=== PATIENT | female | born 1970 | race Caucasian/White ===

== ENCOUNTER 2020-06-24 07:43 | Emergency (ER) | payer OTHER, SELFPAY ==
[2020-06-24 07:45] VITALS: BP 130/105; PULSE 102; RESP 18; TEMP 36.6; O2SAT 97; BMI 22.6
--- NOTE | 2020-06-24 08:15 | CT_ITS ---
STUDY: CT BRAIN WITHOUT CONTRAST REASON FOR EXAM: Female, 49 years old. Head injury, syncope RADIATION DOSAGE (If Supplied By Facility): CTDIvol = ( 44.99 ) mGy, DLP = ( 745.49 ) mGycm TECHNIQUE: Transaxial CT imaging of the brain was performed without administration of intravenous contrast material. Individualized dose optimization techniques were used for this CT. COMPARISON: No relevant priors. FINDINGS: Normal soft tissue structures. Normal calvarium. Normal size ventricles and extra-axial spaces for the patient''s age. Normal white matter tracts of the cerebral hemispheres. Normal basal ganglia and thalami. Normal brainstem. Normal cerebellum. There is no intracranial hemorrhage. There are no findings of an acute ischemic infarction. Normal visualized paranasal sinuses. CT/Brain/Head without Contrast IMPRESSION: Normal unenhanced CT scan of the brain. Electronically Signed: Romaine Bojorquez MD at 8:41 EST Tel , Service support ,
--- NOTE | 2020-06-24 08:17 | ED.DCSUM_ITS ---
History of Present Illness Chief Complaint: Syncope Informant: Patient Onset: Yesterday Timing: Intermittent Narrative: Patient is a 49-year-old female that denies any significant past medical history but notes an episode of vertigo 1 year ago and a recent Covid infection presenting with dizziness. Patient states 2 days ago she stubbed her toe and thinks she dislocated her left pinky toe. She pulled it back into place immediately afterwards had significant pain and became dizzy. That evening she went to take a meclizine which she had been prescribed a year ago for vertigo but actually took her son's old Vicodin instead. When she woke up she went to get out of bed and felt dizzy and then passed out. Patient thinks she hit her head on the door and then fell back and hit her back on the edge of the shower. While she was on the ground patient dry heaves, which shaky and had cold sweats. This symptoms subsided however throughout the day yesterday and today when she moves her head or goes to get up she has a spinning sensation. She had no further episode of nausea or vomiting. She no she is also had some pain and the back of her head at the base of her skull and in her neck/back. Patient has taken no further medications for her symptoms. He has no other complaints at this time. She denies any associated chest pain, shortness of breath or difficulty breathing. Denies any swelling of her legs or edema. No GI or s ymptoms. 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 Denies: Chills, Fever, Sweats Eyes: Denies: Visual changes - bilaterally, Diplopia ENT: Reports: - - Nasal congestion. Denies: Rhinorrhea, Sore throat Cardiovascular: Denies: Chest pain, Palpitations Respiratory: Denies: Dyspnea, Cough, Dyspnea on exertion Gastrointestinal: Denies: Abdominal pain, Nausea, Vomiting, Diarrhea, Melena, Hematochezia Genitourinary: Denies: Dysuria, Hematuria, Frequency Musculoskeletal: Reports: Back pain. Denies: Extremity Pain Skin: Denies: Rash, Wounds Neurological: Reports: Headache. Denies: Weakness, Numbness Physical Exam Vital Signs/Narrative: Vital Signs Temp Pulse Resp BP Pulse Ox 06/24/20 07:45 98 F 102 H 18 130/105 H 97 Inital Vital Signs reviewed: Yes General: Well nourished, Well developed, No Acute Distress Head: Normocephalic, Atraumatic. Negative for: Tenderness Eyes: Perrl, EOMI, - - Horizontal fatiguing nystagmus with left Rupa maneuver ENT: Moist mucous membranes, No rhinorrhea, TM's clear. Negative for: Nasal congestion, Sinus tenderness Neck: Supple, - - Mild tenderness palpation bilateral paraspinal muscles, right worse than left, trapezius and at the base of the skull, still with muscle spasm Cardiovascular: Regular rate, Regular rhythm, No murmurs Respiratory: No distress, CTA bilaterally, Chest nontender Abdomen: Soft, Nontender, Nondistended, Normal bowel sounds Back: Nontender, Normal Inspection Extremities: No edema, Tenderness - And ecchymosis to the left pinky toe at the base, no obvious deformity Skin: Normal color, No rash, Trauma - Facial abrasion to the bridge of the nose and right forehead Neurological: Alert, Oriented x3, Cranial nerves II-XII grossly intact, Normal Strength, Normal Sensation, Normal Gait, - - Normal coordination Psychological: Normal affect, Normal Mood Diagnostic/Tx/Re-eval Clinical Impression(s) from Imaging Studies Brain CT 06/24/20 08:15 IMPRESSION: Normal unenhanced CT scan of the brain. Electronically Signed: Romaine Bojorquez MD at 8:41 EST Tel , Service support , Foot X-Ray 06/24/20 08:34 IMPRESSION: Acute nondisplaced oblique fracture of the neck and head of the fifth proximal phalanx. Electronically Signed: Drew Varner MD at 8:53 EST Tel , Service support , - Medical Decision Making Patient evaluated for persistent dizziness after a fall. Patient broke her left toe and reduced it herself. X-rays obtained shows an acute nondisplaced oblique fracture of the neck and head of the fifth proximal phalange. Patient has a normal neurologic exam. She does have abrasions to her head and because of her fall I did obtain a head CT. This is negative. Her physical exam is actually consistent with peripheral vertigo. Patient has reproducible symptoms on the left with Moose Hallpike test. Patient is given meclizine with improvement of her symptoms. As she does tolerate the rupa maneuver. Patient syncopal episode seems to be vasovagal mediated and related to taking a Vicodin. Spent over 24 hours and she not had any further syncopal episodes. I do not think blood work is indicated. Patient is counseled that should she develop any worsening symptoms she will need to return to the ER for further evaluation . Agreeable with this. Patient does have some abrasions but elects to follow-up with her PCP for update of her tetanus. She will follow-up with her PCP as needed for her vertigo. She has meclizine at home which she can take. Patient is counseled on signs and symptoms requiring return to the emergency room. Patient verbalizes agreement and understand this plan. Patient discharged home in stable and improved condition. ED Disposition - Plan for ED Patient: Disposition: Home or Assisted Living Diagnosis: Vertigo, Fracture of fifth toe, left, closed Instructions: ED Near-Fainting- Vagal Reaction, ED Fracture, Toe, Closed, ED Vertigo, Unspecified Referrals: Celsa Couch [employer]ERCIAL TRUCK DRIVER, [employer]CIAL TRUCK [employer]IVER[employer] [Primary Care Provider] - Additional Instructions: Alternate Tylenol and ibuprofen as needed. Follow-up with your primary care provider within the next week. Perform the Rupa maneuver for your vertigo at home. Return to the emergency room with any worsening symptoms.
[2020-06-24] MEDS: Meclizine HCl 25 MG Tablet PO (08:26)
--- NOTE | 2020-06-24 08:34 | RAD_ITS ---
STUDY: X-RAY - LEFT FOOT CLINICAL: Female, 49 years old. pain, injury TECHNIQUE: 3 view(s) of the foot. COMPARISON: None. FINDINGS: Normal talus, calcaneus, and tarsal bones. Normal visualized subtalar, talonavicular, calcaneocuboid, tarsal and tarsometatarsal articulations. Normal metatarsi. Normal metatarsophalangeal joint of the great toe. Normal tibial and fibular sesamoid bones. Normal interphalangeal joint of the great toe. Normal phalanges of the great toe. Normal second through fifth metatarsophalangeal joints. The acute nondisplaced oblique fracture of the neck and head of the fifth proximal phalanx. The soft tissue structures are unremarkable. RAD/Foot min 3 Views IMPRESSION: Acute nondisplaced oblique fracture of the neck and head of the fifth proximal phalanx. Electronically Signed: Drew Varner MD at 8:53 EST Tel , Service support ,
[2020-06-24 10:24] VITALS: BP 124/78; PULSE 71; RESP 16; O2SAT 99
== END 2020-06-24 10:25 | disposition home or self-care (01) ==
PROVIDERS: Emergency Provider Emergency Medicine; PCP Nurse Practitioner Family
DX: H81.399 Other peripheral vertigo, unspecified ear (principal); S92.515A Nondisplaced fracture of proximal phalanx of left lesser toe(s), initial encounter for closed fracture; S00.31XA Abrasion of nose, initial encounter; S00.81XA Abrasion of other part of head, initial encounter; W22.8XXA Striking against or struck by other objects, initial encounter; W18.00XA Striking against unspecified object with subsequent fall, initial encounter; Y93.9 Activity, unspecified; Y92.9 Unspecified place or not applicable; Y99.9 Unspecified external cause status; Z86.16 Personal history of COVID-19
CPT/HCPCS: 70450; 73630; 99282

== ENCOUNTER 2021-10-29 09:00 | Outpatient (RCR) | payer OTHER, SELFPAY ==
--- NOTE | 2021-09-16 16:59 | HP.PTEVAL_ITS ---
Patient's Visit Information DIOGENES CRAIN is a 50 year old F referred to Physical Therapy by LONI Pandya with a diagnosis of R ARM PAIN. Date of Evaluation: 09/16/21 Physical Therapist: Paola Dawn PT, Cert MDT - Visit Plan Frequency: 2-3x /Week Duration: 4-6 Weeks Plan: US X 6. POSTURE CORRECTION/STRENGTHENING, INSTRUCTION IN APPROPRIATE BODY MECHANICS AND ACTIVITY MODIFICATIONS. GROVER UE ROM, STRETCHING AND STRENGTHENING. HEP INSTRUCTION. 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 MOSTLY DESK WORK BUT 25% GETTING UP. Present symptoms: RIGHT UPPER ARM PAIN. R UE TINGLING ABOUT EVERY MORNING. TINGLING IS GONE IN ABOUT 30 MIN OR LESS. Present since: LAST WEEK IN APR 2021. Pain Scale: Worst - 1/10 Least - 0/10. Currently: 05/06. Commenced as a result of: FELL ON THE ICE HIKING. FELL ON RIGHT SIDE. Symptoms at onset: SAME. Worse: THINKING ABOUT IT. REACHING ACROSS BODY. PULLING BLANKET UP. R SDLY. Better: TIME. Disturbed sleep: NO. Previous history/Previous treatment: NO HX OF RIGHT UE PROBLEMS. RIGHT FOOT FX AND FALL MAY 2020 AND HIT HEAD AND SOME NECK ISSUES. NECK ISSUES RESOLVED LAST SUMMER. NO NECK TREAMENT NEEDED OTHER THAN REST. CHIRO EVERY FEW MONTHS AND DID HAVE NECK ADJUSTMENTS. This episode: NECK ADJUSTMENTS. MASSAGE THERAPY. Dizziness: NO. Tinnitis: CHRONIC X 1.5 YEARS SINCE FALL - MILD. Nausea: NO. Shortness of Breath: NO. Difficulty Swollowing: NO. Gait: NORMAL. Accidents: FALLS. Unexplained weight loss: NO. Imaging: NONE. PMH/Recent major surgery: UNREMARKABLE. - Objective Sitting Posture/Standing Posture: GOOD. Other Observations: INDEP GAIT AND TRANSFERS. Sensory deficit: GROVER UE LIGHT TOUCH SENSATION IS GROSSLY INTACT AND SYMMETRICAL. ROM deficit: GROVER UE'S WFL. Motor deficit: GROVER UE'S 5/5. Dural Signs: NEGATIVE GROVER UE'S. Cervical Mvmt Loss: Flex: MIN. Pro: NIL. Ext: MIN. Ret: MIN. RSB: MIN. LSB: MIN. R Rot: NIL. L Rot: NIL. CERVICAL ROM TESTING HAS NE ON RIGHT UE SX'S. Postural strength: FAIR. Palpation: VERY MILD TENDERNESS OF RIGHT LATERAL UPPER ARM IN DISTAL DELTOID AND TRICEP AREA. OTHER: 1/10 PAIN RIGHT LATERAL ARM AT END RANGE R SHLD HORIZONTAL ABD. - Balance/Special Test Scores Quick DASH Score: [phone] - Goals Goal 1:: DECREASE C/O R ARM PAIN Goal Time Frame: 4-6 Weeks Goal 2:: INDEP HEP Goal Time Frame: 4-6 Weeks Goal Time Frame: 4-6 Weeks - Anticipated Interventions Patient/Client Instruction: Educate patient on: Condition, Plan of Care, Risk Factors For the Purpose of:: To improve self management Therapeutic Exercise to Include: Strength training, Body mechanics, Postural training, Neuromotor development, Scapular Strength/Stabilization For the Purpose of:: To decrease pain, To improve muscle performance and motor function, To increase tolerance to activity/condition/position, To improve ability of physical actions for home/community/work/leisure Cryotherapy (ice pack, ice massage): Yes Thermo therapy (hot pack): Yes Ultrasound (thermal/non thermal): Yes For the Purpose of:: To decrease pain, To improve nutrient delivery to tissue Thank you for the opportunity to evaluate your patient. For Medicare and Medicare HMO plans, please review the plan of care and approve it. It will need to be FAXED BACK to us at [phone] for Medicare purposes. For Medicare only, by signing this I certify the plan of care. Please let me know if there are questions or concerns regarding this plan of care. Physician Signature: Date:
--- NOTE | 2021-10-29 10:26 | HP.PTDCSUM ---
It has been my pleasure to treat DIOGENES CRAIN referred by LONI Pandya, with the diagnosis of R ARM PAIN for a total of 9 visit(s). Discharge Date: 10/29/21 Please see the following information for a summary of their discharge status. Subjective: Pt. reports minimal change with DN last visit. She is able to complete most of her activities including hiking and Pilates activities. She does have some pain with end range flexion, H add and abduction. She reports being 80% better overall. R SHLD Pain Intensity (Out of 10): 0 % Improvement: 80 Objective/Function: ROM: R shoulder: full motion with increased pain at end range flexion, abd and H add. She has increased pain with over pressure in these areas as well. MMT: 5/5 throughout without increase in symptoms. Pt. is overall doing well. I reviewed her HEP to include SL shoulder ER (high volume low load as tolerated), I/T/Ys deltoid strengthening and stability exercises a tolerated. I do want her working on shoulder pass throughs as well. Goal 1:: DECREASE C/O R ARM PAIN Goal Progress: Progressing Goal 2:: INDEP HEP Goal Progress: Goal Met Plan: Pt. to be DC to HEP at this point in time. Discharge Comments: Pt. was treated with RTC stability exercises for her R shoulder pain. She is doing better, but is still having lateral distal deltoid pain with end ranges of motion. No issues with MMT. She is to continue with her HEP for a month or so and if she continues to progress, she will continue, but if worsening she is to follow up with physician. If there are questions or concerns regarding this patient's physical therapy, please feel free to call me at [phone]. Thank you for the referral of this patient. Sincerely, Shankar Bueno, DPT Balance/Gait/Functional tests - Balance/Special Test Scores Quick DASH Score: [phone]
== END 2021-10-29 19:00 | disposition home or self-care (01) ==
LOC: PT 09:00
PROVIDERS: PCP Nurse Practitioner Family; Referring Provider Nurse Practitioner Family; Visit Provider Nurse Practitioner Family
DX: M79.601 Pain in right arm (principal)
CPT/HCPCS: 97035; 97110; 97140; 97161; 97164; 97530

== ENCOUNTER → 2024-10-14 | Outpatient (CLI) | payer OTHER, SELFPAY ==
--- NOTE | 2024-10-14 11:37 | MRI_ITS ---
PROCEDURE: SPINE LUMBAR (ROUTINE) 10/14/2024 REASON FOR EXAM: BACK PAIN TECHNIQUE: SPINE LUMBAR (ROUTINE) COMPARISON: none FINDINGS: Straightened lumbar lordosis denoting myospasm. The examined vertebral bodies and posterior neural arches show no fracture or dislocation with preserved vertebral bodies height. No vertebral fractures or dislocation. No obvious marrow degenerative changes. Modic 0. The scanned lumbosacral intervertebral discs show normal MRI appearance, signal characteristics, and heights. T12-L1: There is no focal disc pathology, central canal stenosis or neural foraminal stenosis. L1-L2: There is no focal disc pathology, central canal stenosis or neural foraminal stenosis. L2-L3: There is no focal disc pathology, central canal stenosis or neural foraminal stenosis. L3-L4: There is no focal disc pathology, central canal stenosis or neural foraminal stenosis. L4-L5: There is no focal disc pathology, central canal stenosis or neural foraminal stenosis. L5-S1: There is no focal disc pathology, central canal stenosis or neural foraminal stenosis. The conus is seen terminating opposite T12-L1 level. No tethered cord or diastematomyelia. The lower dorsal spinal cord, conus medullaris, and cauda equina nerve roots show normal MRI signal. L5 small osseous hemangioma. No marrow infiltrative lesions. Paravertebral soft tissue is unremarkable. No developmental canal stenosis. MRI/Spine Lumbar (Routine) IMPRESSION: Straightened lumbar lordosis denoting myospasm. No vertebral fractures or dislocation. No focal disc pathology, central canal stenosis or neural foraminal stenosis. Reading Location: [facility]
--- OUTSIDE RECORDS SUMMARY | 2024-10-14 11:55 | XMS RPT_ITS | CCD ---
Author Organization [facility] Care Team Providers Care Trim Attacher Name Role Phone Dossi Kalyani LAZAR Unavailable Maddy AMERICAN HISTORY TEACHER, AMERICAN HISTORY TEACHER-C Celsa Primary Care Provider Maddy AMERICAN HISTORY TEACHER, AMERICAN HISTORY TEACHER-C Celsa Referring Provider [phone] Dr. Kalyani Dinh Attending Provider [phone] SCREEN MAKER-CELSA SMITH Primary Care Physician Lily Segura DO Primary Care Provider Codie Pérez MD Primary Care Provider Podlogar SCREEN MAKER.Mary SMITH Unavailable Podlogar SCREEN MAKER.MANAGER UTILITY, Mary Unavailable Dossi Dr. Kalyani LAZAR Attending Provider [phone] PODLOGAR, MARY Referring Unavailable CODIE PÉREZ Primary Care Unavailab le PODLOGAR, MARY Attending Unavailable CODIE PÉREZ Primary Care Unavailab le Andrey Pérez Primary Care Unavailable Andrey Pérez Referring Unavailable Dossi, Kalyani Attending Unavailable Dossi, Kalyani Attending Unavailable Dossi, Kalyani Attending Unavailable Dossi, Klayani Attending Unavailable Dossi, Kalyani Attending Unavailable Dossi, Kalyani Attending Unavailable Dossi, Kalyani Attending Unavailable Andrey Pérez Primary Care Unavailable Dossi, Kalyani Attending Unavailable Dossi, Kalyani Attending Unavailable Andrey Pérez Primary Care Unavailable Dossi, Kalyani Referring Unavailable Dossi, aKlyani Attending Unavailable Dossi, Kalyani Attending Unavailable Dossi, Kalyani Attending Unavailable Beto BURNETT, Dr. Balderas Primary Care Provider Dr. Andrey Pérez MD Referring Provider Allergies Allergy Classification Reported Allergen(s) Allergy Type Date of Onset Reaction(s) Facility (1 source) Ragweed 1 Allergy to substance Itchy [facility] [place] Comment on above: itcy eyes (3 sources) Seasonal allergy; Translations: [SEASONAL ALLERGIES] Allergy to substance Other: See Comments [facility] Medications Current Medications Medication Drug Class(es) Dates Sig (Normalized) Sig (Original) Hydrocortisone 2.5%/Lidocaine 5% Suppository (Cmpd) suppository (3 sources) Start: 03-03-2023 Hydrocortisone 2.5%/Lidocaine 5% Suppository (Cmpd) suppository Active 0 .Route March 03, 2023 1:00am As directed Magnesium glycinate (2 sources) MAGNESIUM GLYCIN ATE ORAL Take by mouth. Active meclizine hydrochloride 25 mg oral tablet (1 source) Antiemetic Start: 06-28-2020 meclizine 25 mg oral tablet Dose : 25 mg = 1 tab(s), Oral, BID, # 60 tab(s), 0 Refill(s) Start Date: 06/28/20 Status: Ordered MULTIVITAMIN ORAL (4 sources) take 1 tablet by mouth twice daily MULTIVITAMIN ORAL Take 1 tablet by mouth twice daily. Active take 1 tablet by mouth twice clemente ly MULTIVITAMIN ORAL Take 1 tablet by mouth twice daily. 0 Active Comment on above: Take 1 tablet by leif th twice daily. Multivitamin tablet (3 sources) Start: 03-03-2023 Multivitamin tablet Active 1 {tbl} PO DAILY March 03, 2023 1:00am Completed/Discontinued Medications Medication Drug Class(es) Dates Sig (Normalized) Sig (Original) polyethylene glycol 3350 444812 mg / potassium chloride 2970 mg / sodium bicarbonate 6740 mg / sodium chloride 5860 mg / sodium sulfate 33766 mg powder for oral solution (1 source) Osmotic Laxative Start: 06-24-2022 End: 06-24-2022 peg 3350-Electrolytes (GOLYTELY) 236-22.74-6.74 -5.86 gram suspension Take 4,000 mL by mouth one time only for 1 dose. 1 Each 0 06/24/2022 06/24/2022 Comment on above: Take 4,000 mL by leif th one time only for 1 dose. Problems Active Problems Problem Classification Problem Date Documented Da te Episodic/Chronic Conditions associated with dizziness or vertigo (4 sources) Vertigo; Translations: [Dizziness and giddiness] 06-25-2020 Episodic Fracture of lower limb (5 sources) Closed fracture of phalanx of foot; Translations: [Displaced unspecified fracture of left lesser toe(s), initial encounter for closed fracture] 06-28-2020 Episodic Hemorrhoids (3 sources) Hemorrhoids; Translations: [Unspecified hemorrhoids] 03-06-2023 Episodic Other bone disease and musculoskeletal deformities (20 sources) Segmental and somatic dysfunction; Translations: [Segmental and somatic dysfunction of cervical region] Onset: 04-10-2016 04-10-2016 Episodic Other bone disease and musculoskeletal deformities (2 sources) Segmental and somatic dysfunction of cervical region; Translations: [Nonallopathic lesions, cervical region] Onset: 09-28-2024 Episodic Other bone disease and musculoskeletal deformities (2 sources) Segmental and somatic dysfunction of lumbar region; Translations: [Nonallopathic lesions, lumbar region] Onset: 09-29-2024 Episodic Other bone disease and musculoskeletal deformities (2 sources) Segmental and somatic dysfunction of thoracic region; Translations: [Nonallopathic lesions, thoracic region] Onset: 09-28-2024 Episodic Other bone disease and musculoskeletal deformities (1 source) Segmental and somatic dysfunction of pelvic region; Translations: [Segmental and somatic dysfunction of pelvic region] Onset: 09-28-2024 Episodic Other connective tissue disease (1 source) Pain in right arm 09-03-2021 Episodic Other gastrointestinal disorders (1 source) Central abdominal mass 09-12-2019 Episodic Other gastrointestinal disorders (1 source) Heartburn 09-12-2019 Episodic Other gastrointestinal disorders (1 source) History of hemorrhoid; Translations: [Personal history of other diseases of the digestive system] Episodic Other injuries and conditions due to external causes (1 source) Concussion injury of body structure 06-28-2020 Episodic Other screening for suspected conditions (not mental disorders or infectious disease) (7 sources) Patient encounter status; Translations: [Encounter for screening for malignant neoplasm of colon] Onset: 09-09-2024 Episodic Otitis media and related conditions (1 source) Dysfunction of eustachian tube 09-12-2019 Episodic Spondylosis; intervertebral disc disorders; other back problems (8 sources) Backache; Translations: [Dorsalgia, unspecified] Episodic Sprains and strains (4 sources) Acute cervical sprain; Translations: [Sprain of joints and ligaments of unspecified parts of neck, initial encounter] 07-02-2020 Episodic Superficial injury; contusion (6 sources) Contusion of right thumb; Translations: [Contusion of right thumb without damage to nail, initial encounter] 07-06-2023 Episodic Syncope (1 source) Syncope 06-28-2020 Episodic Unclassified (2 sources) Low back pain, unspecified; Translations: [Low back pain, unspecified] Onset: 09-29-2024 Past or Other Problems Problem Classification Problem Date Documented Da te Episodic/Chronic Unclassified (1 source) Patient encounter status 09-09-2024 Results Test Name Value Interpretation Reference Range Facility Chiropractic Reporton 2024 Chiropractic Report [facility] [address] [place] [address] OFFICE VISIT Date of Service: 09/28/24 MR#: [id number] Acct: [id number] Name: DIOGENES RUSSELL Rep #: [id number] : 1970 Provider: NAGI Henderson Age/Sex: 53/F Location: [facility] Status: Signed Intake Vital Signs 08/22/24 15:35 Height 5 ft Intake Visit Reasons: Back Pain Chief Complaint: low back pain/neck Is patient in pain?: Yes (low back ) Pain scale (1-10): 5 Allergies No Known Allergies Allergy (Verified 09/28/24 08:48) Medications ???Medication ???Instructions ???Recorded ???Confirmed ???Type Hydrocortisone 2.5%/lidocaine 5% #30 ea 03/03/23 09/28/24 Rx suppository (cmpd) multivitamin 1 tab PO DAILY 03/03/23 09/28/24 H istory [facility] Medical History Contusion of right thumb Subungual hematoma of right thumb Hemorrhoids Surgical History H/O prior ablation treatment Social History Smoking Status: Never smoker alcohol intake: current alcohol intake frequency: a few times a month substance use type: does not use HPI Back Pain Chief Complaint: low back pain Visit Number: 4 Details: DIOGENES RUSSELL is a 53 year old F here today to f/u on low back pain. Pt. reports she initially had some improvement in her low back pain after her last adjustment and acupuncture session. She states she has been doing restorative PT exercises she was given as well stretching. She continues to c/o low back pain and stiffness that is worse on the right side. She still notices twinges of pain in her bilateral low back. She rates her pain 5/10 and describes it as a constant achiness. She also treats pain at home with ice and Aleve as needed. She denies new injury, numbness, tingling or radiculopathy at this time. She continues to get massages in between adjustments which help alleviate discomfort. She reports chiropractic adjustments are effective in relieving her back pain/discomfort temporarily but it gradually returns. Onset: 01/20/24 Location: Back Duration: intermittent Aggravating or associated factors: Bending, hiking,ADLs Relieving factors: Chiro,acu Pain Quality: aching and dull Exam Musc General: Yes normal posture, normal gait, joint tenderness and decreased range of motion Cervical Spine: Yes loss of normal cervical lordosis Thoracic/Lumber: Yes thoracic and lumbar spine normal to inspection, Yes paraspinal tenderness on the right greater than left (lumbar), Yes thoraco-lumbar spasm bilaterally (paraspinal L3-L5, glute max) in the lower lumbar, Yes Trigger (R glute medius) and Yes misalignment L3, L4, L5 and RIL Sacroiliac joints: on the right tender to palpation Office Procedures Procedures - Chiropractic Procedures Manipulation: Lumbar L4 and Pelvis RIL Manipulation: 1-2 regions Acupuncture: Acupuncture with electrical stimulation (ES) (initial session) Patient Response: positive Details: ???Acupuncture Patient instructions/Risk: Patient instructed not to move and informed of risks of moving. Risks associated with the procedure and the specific location were reviewed with the patient and consent was obtained. Acupuncture performed: E-stim was utilized. Acupoints Treated: BL:23,24,25,26,40,60, Yaoyan,surround dragon at R SI Sterile, single use, solid filament needles were inserted at various depths and angles to release tight tissue, improve microcirculation and remove neuro-noxious chemicals via a myofascial twitch response. [place] were inserted, needle manipulation was performed. Needle removal was performed and pressure was applied when necessary. Minutes:15 Needle Number: .20x30 Patient response: positive Patient Positioning: prone Assessment and Plan Assessment and Plan (1) Segmental and somatic dysfunction of pelvic region: Status: Acute (2) Segmental and somatic dysfunction of lumbar region: Status: Acute (3) Back pain: Status: Chronic Qualifiers: Back pain location: low back pain Chronicity: acute Back pain laterality: bilateral Sciatica presence: without sciatica Qualified Code(s): M54.50 - Low back pain, unspecified Orders: Orders Chiropractic Treatments Today M99.01 - Segmental and somatic dysfunction of cervical region, M99.02 - Segmental and somatic dysfunction of thoracic region, M99.03 - Segmental and somatic dysfunction of lumbar region, M99.05 - Segmental and somatic dysfunction of pelvic region Plan Patient was treated without incident. She is showing slow improvement. She has a lumbar MRI scheduled for 10/24/2024. Continue care. Plan Details Goals Barriers: Goals Decrease pain Decrease spasm Improve ROM Decrease (more content not included)... Normal [facility] Chiropractic Reporton 2024 Chiropractic Report [facility] [address] [place] [address] OFFICE VISIT Date of Service: 09/13/24 MR#: [id number] Acct: [id number] Name: DIOGENES RUSSELL Walter Rep #: [id number] : 1970 Provider: NAGI Henderson Age/Sex: 53/F Location[place] [facility] [place] Status: Signed Intake Vital Signs 08/22/24 15:35 Height 5 ft Intake Visit Reasons: Back Pain Chief Complaint: low back pain/neck Is patient in pain?: Yes (low back ) Pain scale (1-10): 4 Allergies No Known Allergies Allergy (Verified 09/13/24 15:53) Medications ???Medication ???Instructions ???Recorded ???Confirmed ???Type Hydrocortisone 2.5%/lidocaine 5% #30 ea 03/03/23 09/13/24 Rx suppository (cmpd) multivitamin 1 tab PO DAILY 03/03/23 09/13/24 H istory [facility] Medical History Contusion of right thumb Subungual hematoma of right thumb Hemorrhoids Surgical History H/O prior ablation treatment Social History Smoking Status: Never smoker alcohol intake: current alcohol intake frequency: a few times a month substance use type: does not use HPI Back Pain Chief Complaint: low back pain Visit Number: 3 Details: DIOGENES RUSSELL is a 53 year old F here today to f/u on low back pain. Pt. reports she is really not having any improvement in her low back pain. She states she has been doing the PT exercises she was given as well as pilates and stretching. her adjustment last week she had dry needling. She continues to c/o low back pain and stiffness that is equal bilaterally, this has improved since her last adjustment. She has been able to return to doing strength training every night for 30 minutes but still notices twinges of pain in her bilateral low back. She rates her pain 4/10 and describes it as a constant achiness. She also treats pain at home with ice and Ibuprofen as needed. She denies new injury, numbness, tingling or radiculopathy at this time. She continues to get massages in between adjustments which help alleviate discomfort. She reports chiropractic adjustments are effective in relieving her back pain/discomfort temporarily but it gradually returns. Onset: 01/20/24 Location: Back Duration: intermittent Aggravating or associated factors: Bending, hiking,ADLs Relieving factors: Chiro,massage Pain Quality: aching and dull Exam Musc General: Yes normal posture, normal gait, joint tenderness and decreased range of motion Cervical Spine: Yes loss of normal cervical lordosis Thoracic/Lumber: Yes thoracic and lumbar spine normal to inspection, Yes paraspinal tenderness on the right greater than left (lumbar) and on the left greater than right (upper thoracic), Yes thoraco-lumbar spasm bilaterally (paraspinal L3-L5, glute max) in the lower lumbar and on the left greater than right (trap, rhomboid), Yes Trigger (R glute medius) and Yes misalignment T1, T2, T3, T5, T6, L3, L4, L5 and RIL Sacroiliac joints: on the right tender to palpation Office Procedures Procedures - Chiropractic Procedures Manipulation: Lumbar L4, Thoracic T5 and Pelvis RIL Manipulation: 3-4 regions Traction, Mechanical: Yes Acupuncture: Acupuncture with electrical stimulation (ES) (initial session) Patient Response: positive Details: ???Acupuncture Patient instructions/Risk: Patient instructed not to move and informed of risks of moving. Risks associated with the procedure and the specific location were reviewed with the patient and consent was obtained. Acupuncture performed: E-stim was utilized. Acupoints Treated: BL60,BL40,GB30,BL23,2 4,25, Yaoyan Patient was prepped with 70% Isopropyl alcohol to the site, if needed. Sterile, single use, solid filament needles were inserted at various depths and angles to release tight tissue, improve microcirculation and remove neuro-noxious chemicals via a myofascial twitch response. [place]on were inserted, needle manipulation was performed. [place] were removed and pressure was applied(if necessary). Minutes:20 Needle Number: .20x30, .25x75 Patient response: positive Patient Positioning: prone Assessment and Plan Assessment and Plan (1) Segmental and somatic dysfunction of thoracic region: Status: Acute (2) Segmental and somatic dysfunction of pelvic region: Status: Acute (3) Segmental and somatic dysfunction of lumbar region: Status: Acute (4) Back pain: Status: Chronic Qualifiers: Back pain location: low back pain Chronicity: acute Back pain laterality: bilateral Sciatica presence: without sciatica Qualified Code(s): M54.50 - Low back pain, unspecified Orders: Orders Chiropractic Treatments Today M99.01 - Segmental and somatic dysfunction of cervical (more content not included)... Normal [facility] CBC W Auto Differential pane l (Bld)on 09-09-2024 Basophils (Bld) [#/Vol] 0.03 10*3/uL Normal <0.11 [facility] Comment on above: Order Comment: Speci men Type: BLOOD SPECIMEN Ordering Facility: [facility] Address: [address] [place] [address] Performed By: #### 5 7021-8 #### [facility] CLIA [id number] [address] [place] [address] [place] Basophils/100 WBC (Bld) 0.8 % Normal [facility] Comment on above: Order Comment: Speci men Type: BLOOD SPECIMEN Ordering Facility: [facility] Address: [address] [place] [address] Performed By: #### 5 7021-8 #### [facility] CLIA [id number] [address] [place] [address] [place] Differential cell count method Nom (Bld) Auto Normal [facility] Comment on above: Order Comment: Speci men Type: BLOOD SPECIMEN Ordering Facility: [facility] Address: [address] [place] [address] Performed By: #### 5 7021-8 #### [facility] CLIA [id number] [address] [place] [address] [place] Eosinophils (Bld) [#/Vol] 0.15 10*3/uL Normal <0.46 [facility] Comment on above: Order Comment: Speci men Type: BLOOD SPECIMEN Ordering Facility: [facility] Address: [address] [place] [address] Performed By: #### 5 7021-8 #### [facility] CLIA [id number] [address] [place] [address] [place] Eosinophils/100 WBC (Bld) 3.8 % Normal [facility] Comment on above: Order Comment: Speci men Type: BLOOD SPECIMEN Ordering Facility: [facility] Address: [address] [place] [address] Performed By: #### 5 7021-8 #### [facility] CLIA [id number] [address] [place] [address] [place] Erythrocyte distribution width (RBC) [Ratio] 12.1 % Normal 11.5-15.0 [facility] Comment on above: Order Comment: Speci men Type: BLOOD SPECIMEN Ordering Facility: [facility] Address: [address] [place] [address] Performed By: #### 5 7021-8 #### [facility] CLIA [id number] [address] [place] [address] [place] Hematocrit (Bld) [Volume fraction] 40.2 % Normal 36.0-46.0 [facility] Comment on above: Order Comment: Speci men Type: BLOOD SPECIMEN Ordering Facility: [facility] Address: [address] [place] [address] Performed By: #### 5 7021-8 #### [facility] CLIA [id number] [address] [place] [address] [place] Hemoglobin (Bld) [Mass/Vol] 13.4 g/dL Normal 11.5-15.5 [facility] Comment on above: Order Comment: Speci men Type: BLOOD SPECIMEN Ordering Facility: [facility] Address: [address] [place] [address] Performed By: #### 5 7021-8 #### [facility] CLIA [id number] [address] [place] [address] [place] Immature granulocytes (Bld) [#/Vol] 10*3/uL Normal <0.10 [facility] Comment on above: Order Comment: Speci men Type: BLOOD SPECIMEN Ordering Facility: [facility] Address: [address] [place] [address] Performed By: #### 5 7021-8 #### [facility] CLIA [id number] [address] [place] [address] [place] Immature granulocytes/100 WBC (Bld) 0.3 % Normal [facility] Comment on above: Order Comment: Speci men Type: BLOOD SPECIMEN Ordering Facility: [facility] Address: [address] [place] [address] Performed By: #### 5 7021-8 #### [facility] CLIA [id number] [address] [place] [address] [place] Lymphocytes (Bld) [#/Vol] 1.73 10*3/uL Normal 1.00-4.00 [facility] Comment on above: Order Comment: Speci men Type: BLOOD SPECIMEN Ordering Facility: [facility] Address: [address] [place] [address] Performed By: #### 5 7021-8 #### [facility] CLIA [id number] [address] [place] [address] [place] Lymphocytes/100 WBC (Bld) 44.0 % Normal [facility] Comment on above: Order Comment: Speci men Type: BLOOD SPECIMEN Ordering Facility: [facility] Address: [address] [place] [address] Performed By: #### 5 7021-8 #### [facility] CLIA [id number] [address] [place] [address] [place] MCH (RBC) [Entitic mass] 32.4 pg Normal 26.0-34.0 [facility] Comment on above: Order Comment: Speci men Type: BLOOD SPECIMEN Ordering Facility: [facility] Address: [address] [place] [address] Performed By: #### 5 7021-8 #### [facility] CLIA [id number] [address] [place] [address] [place] MCHC (RBC) [Mass/Vol] 33.3 g/dL Normal 30.5-36.0 [facility] Comment on above: Order Comment: Speci men Type: BLOOD SPECIMEN Ordering Facility: [facility] Address: [address] [place] [address] Performed By: #### 5 7021-8 #### [facility] CLIA [id number] [address] [place] [address] [place] MCV (RBC) [Entitic vol] 97.1 fL Normal 80.0-100.0 [facility] Comment on above: Order Comment: Speci men Type: BLOOD SPECIMEN Ordering Facility: [facility] Address: [address] [place] [address] Performed By: #### 5 7021-8 #### [facility] CLIA [id number] [address] [place] [address] [place] Monocytes (Bld) [#/Vol] 0.38 10*3/uL Normal <0.87 [facility] Comment on above: Order Comment: Speci men Type: BLOOD SPECIMEN Ordering Facility: [facility] Address: [address] [place] [address] Performed By: #### 5 7021-8 #### [facility] CLIA [id number] [address] [place] [address] [place] Monocytes/100 WBC (Bld) 9.7 % Normal [facility] Comment on above: Order Comment: Speci men Type: BLOOD SPECIMEN Ordering Facility: [facility] Address: [address] [place] [address] Performed By: #### 5 7021-8 #### [facility] CLIA [id number] [address] [place] [address] [place] Neutrophils (Bld) [#/Vol] 1.63 10*3/uL Normal 1.45-7.50 [facility] Comment on above: Order Comment: Speci men Type: BLOOD SPECIMEN Ordering Facility: [facility] Address: [address] [place] [address] Performed By: #### 5 7021-8 #### [facility] CLIA [id number] [address] [place] [address] [place] Neutrophils/100 WBC (Bld) 41.4 % Normal [facility] Comment on above: Order Comment: Speci men Type: BLOOD SPECIMEN Ordering Facility: [facility] Address: [address] [place] [address] Performed By: #### 5 7021-8 #### [facility] CLIA [id number] [address] [place] [address] [place] Nucleated RBC (Bld) [#/Vol] 10*3/uL Normal <0.01 [facility] Comment on above: Order Comment: Speci men Type: BLOOD SPECIMEN Ordering Facility: [facility] Address: [address] [place] [address] Performed By: #### 5 7021-8 #### [facility] CLIA [id number] [address] [place] [address] [place] Nucleated RBC/100 WBC (Bld) [Ratio] 0.0 /100 WBC Normal [facility] Comment on above: Order Comment: Speci men Type: BLOOD SPECIMEN Ordering Facility: [facility] Address: [address] [place] [address] Performed By: #### 5 7021-8 #### [facility] CLIA [id number] [address] [place] [address] [place] Platelet mean volume (Bld) [Entitic vol] 11.7 fL Normal 9.0-12.7 [facility] Comment on above: Order Comment: Speci men Type: BLOOD SPECIMEN Ordering Facility: [facility] Address: [address] [place] [address] Performed By: #### 5 7021-8 #### [facility] CLIA [id number] [address] [place] [address] [place] Platelets (Bld) [#/Vol] 192 10*3/uL Normal 150-400 [facility] Comment on above: Order Comment: Speci men Type: BLOOD SPECIMEN Ordering Facility: [facility] Address: [address] [place] [address] Performed By: #### 5 7021-8 #### [facility] CLIA [id number] [address] [place] [address] [place] RBC (Bld) [#/Vol] 4.14 10*6/uL Normal 3.90-5.20 [facility] Comment on above: Order Comment: Speci men Type: BLOOD SPECIMEN Ordering Facility: [facility] Address: [address] [place] [address] Performed By: #### 5 7021-8 #### [facility] CLIA [id number] [address] [place] [address] [place] WBC (Bld) [#/Vol] 3.93 10*3/uL Normal 3.70-11.00 [facility] Comment on above: Order Comment: Speci men Type: BLOOD SPECIMEN Ordering Facility: [facility] Address: [address] [place] [address] Performed By: #### 5 7021-8 #### [facility] CLIA [id number] [address] [place] [address] [place] CNOVon 09-09-2024 CN Office Visit (ISAACWS ) ARIA RUSSELL ([id number]) 1970 F Date Time Provider Department 09/09/24 8:00 AM MARY QUINONEZ During your visit today, we recorded the following information about you: Pulse Respiration Blood pressure Weight 73/minute 18/minute 104/64 54.6 kg Height 1.574 m Mary Quinonez APRN.MANAGER UTILITY 09/09/2024 9:05 AM Signed 09/09/2024 Patient presents with: Establish Care Recording using Fontself software for draft documentation of the visit was discussed with the patient/authorized labor service representative; all questions welcomed and answered. Patient/authorized labor service representative agreed to proceed SUBJECTIVE: This is a 53 year old that is here today for Above Complaints. Menopausal Symptoms: - Experiencing vaginal dryness and hot flashes. - Reports weight gain, previously maintaining around 120 lbs, increased to 128 lbs; currently back to 120 lbs after dietary changes and intermittent fasting. - Sleep disturbances noted, but no significant mood changes reported. - Taking magnesium supplement to alleviate symptoms, with minimal effect. Hemorrhoids: - Chronic hemorrhoids with occasional flare-ups. - Family history of severe hemorrhoids in father, who has undergone two surgeries. - Previous evaluation by a general surgeon recommended fiber intake. Vertigo: - Severe vertigo episode during COVID-19 pandemic, accompanied by earaches and tinnitus. - Evaluated by ENT Dr. Cespedes; hearing test performed. 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 - Symptoms resolved after dietary modifications, no recurrence in the past 1.5 years. Surgical History: - Endometrial ablation performed by Dr. Cowan 12-15 years ago. - Tonsillectomy in first grade. Preventive Care: - Last mammogram approximately three years ago; reports dense breast tissue. - Pap smear completed in 2022. - Uncertain about shingles vaccination status. - No recent basic labs, including cholesterol, performed in the last year. Family History: - Mother, age 79, has lymphoma in remission for 10 years. - Father, age 83, has no significant health issues. - Brother is healthy. - Maternal grandparents both of lung cancer; both were smokers. - Paternal grandparents of old age; specific causes not remembered. Social History: - Non-smoker, no vaping or illicit drug use. - Consumes alcohol socially. - with two children. - Employed in the [employer] office at [address] for 18 years; plans to resign this summer. 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 - Enjoys hiking and Pilates twice a week. Past medical, surgical, family, social hx, medications, allergies and health maintenance reviewed and updated PAST MEDICAL HISTORY Diagnosis Date Benign paroxysmal positional vertigo Hemorrhoids NEGATIVE MEDICAL HISTORY Tinnitus ALLERGIES Seasonal Allergies MEDICATIONS Current Outpatient Medications Medication Sig MAGNESIUM GLYCINATE ORAL Take by mouth. MULTIVITAMIN ORAL Take 1 tablet by mouth twice daily. No current facility-administered medications for this visit. Medications and allergies reviewed by this provider. SOCIAL HISTORY Social History Tobacco Use Smoking status: Never Smokeless tobacco: Never Substance Use Topics Alcohol use: Yes Comment: socially Drug use: No REVIEW OF SYSTEMS GENERAL: No weight loss, malaise or fevers HEENT: Negative for frequent or significant headaches, No changes in hearing or vision, no nose bleeds or other nasal problems NECK: Negative for lumps, goiter, pain and significant neck swelling RESPIRATORY: Negative for cough, hemoptysis, wheezing, COPD, dyspnea or shortness of breath CARDIOVASCULAR: Negative for chest pain, leg swelling, hypertension, CHF or palpitations GI: No nausea, vomiting, or diarrhea : No history of dysuria, frequency or incontinence 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 Seeing chiropractor and PT for low ck pain SKIN: Negative for lesions, rash, and itching PSYCH: Negative for sleep disturbance, mood disorder and recent psychosocial stressors HEMATOLOGY/LYMPHOLOGY : Negative for prolonged bleeding, bruising easily or swollen nodes ENDOCRINE: Negative for cold or heat intolerance, polyuria, polydipsia and goiter NEURO: No history of headaches, syncope, paralysis, seizures or tremors All other reviewed and negative other than HPI. OBJECTIVE: BP 104/64 Pulse 73 Resp 18 Ht 157.4 cm (5' 1.97) Wt 54.6 kg (120 lb 6.4 oz) LMP 08/21/2008 SpO2 98% BMI 22.04 kg/m? . Vital signs reviewed by this provider. APPEARANCE Well appearing, alert, in no acute distress, well-hydrated, well nourished. EYES conjunctiva and sclera normal. EARS External ears normal, canals clear NECK Supple, no adenopathy; thyroid symm (more content not included)... Normal [facility] Comprehensive metabolic 2000 panelon 09-09-2024 Albumin [Mass/Vol] 4.5 g/dL Normal 3.9-4.9 [facility] Comment on above: Order Comment: Speci men Type: BLOOD SPECIMEN Ordering Facility: [facility] Address: [address] [place] [address] Performed By: #### 2 4323-8, 96511-9 #### [facility] CLIA [id number] [address] [place] [address] [place] ALP [Catalytic activity/Vol] 84 U/L Normal 34-123 [facility] Comment on above: Order Comment: Speci men Type: BLOOD SPECIMEN Ordering Facility: [facility] Address: [address] [place] [address] Performed By: #### 2 4323-8, 65828-1 #### [facility] CLIA [id number] [address] [place], [place] [id number] [place] ALT [Catalytic activity/Vol] 17 U/L Normal 7-38 [facility] Comment on above: Order Comment: Speci men Type: BLOOD SPECIMEN Ordering Facility: [facility] Address: [address] [place] [address] Performed By: #### 2 4323-8, 78661-4 #### [facility] CLIA [id number] [address] [place], [place] [id number] [place] Anion gap [Moles/Vol] 10 mmol/L Normal 8-15 [facility] Comment on above: Order Comment: Speci men Type: BLOOD SPECIMEN Ordering Facility: [facility] Address: [address] [place] [address] Performed By: #### 2 4323-8, 16581-7 #### [facility] CLIA [id number] [address] [place], [place] [id number] [place] AST [Catalytic activity/Vol] 22 U/L Normal 13-35 [facility] Comment on above: Order Comment: Speci men Type: BLOOD SPECIMEN Ordering Facility: [facility] Address: [address] [place], [place] [id number] Performed By: #### 2 4323-8, 64511-3 #### [facility] CLIA [id number] [address] [place], [place] [id number] [place] Bilirubin [Mass/Vol] 0.5 mg/dL Normal 0.2-1.3 [facility] Comment on above: Order Comment: Speci men Type: BLOOD SPECIMEN Ordering Facility: [facility] Address: [address] [place], [place] [id number] Performed By: #### 2 4323-8, 47385-3 #### [facility] CLIA [id number] [address] [place], [place] [id number] [place] Calcium [Mass/Vol] 9.9 mg/dL Normal 8.5-10.2 [facility] Comment on above: Order Comment: Speci men Type: BLOOD SPECIMEN Ordering Facility: [facility] Address: [address] [place] [address] Performed By: #### 2 4323-8, 92459-4 #### [facility] CLIA [id number] [address] [place], [place] [phone] [place] Chloride [Moles/Vol] 106 mmol/L Normal 98-107 [facility] Comment on above: Order Comment: Speci men Type: BLOOD SPECIMEN Ordering Facility: [facility] Address: [address] [place] [address] Performed By: #### 2 4323-8, 67583-4 #### [facility] CLIA [id number] [address] [place] [address] [place] CO2 [Moles/Vol] 25 mmol/L Normal 22-30 [facility] Comment on above: Order Comment: Speci men Type: BLOOD SPECIMEN Ordering Facility: [facility] Address: [address] [place], [place] [id number] Performed By: #### 2 4323-8, 75433-3 #### [facility] CLIA [id number] [address] [place], [place] [id number] [place] Creatinine [Mass/Vol] 0.70 mg/dL Normal 0.58-0.96 [facility] Comment on above: Order Comment: Speci men Type: BLOOD SPECIMEN Ordering Facility: [facility] Address: [address] [place], [place] [address] Performed By: #### 2 4323-8, 11893-5 #### [facility] CLIA [id number] [address] [place], [place] [phone] [place] Creatinine and Glomerular filtration rate.predicted panel (S/P/Bld) 104 mL/min/1.73m??? Normal >=60 [facility] Comment on above: Order Comment: Richie baeza Type: BLOOD SPECIMEN Ordering Facility: [facility] Address: [address] [place] [address] Result Comment: Wendy mated Glomerular Filtration Rate (eGFR) is calculated using the 2020 CKD-EPI creatinine equation. This equation utilizes serum creatinine, sex, and age as parameters. The creatinine assay has traceable calibration to isotope dilution-mass spectrometry. Refer to KDIGO guidelines for clinical interpretation. In patients with unstable renal function, e.g. those with acute kidney injury, the eGFR may not accurately reflect actual GFR. Performed By: #### 2 4323-8, 01131-4 #### [facility] CLIA [id number] [address] [place] [address] [place] Glucose [Mass/Vol] 83 mg/dL Normal 74-99 [facility] Comment on above: Order Comment: Richie baeza Type: BLOOD SPECIMEN Ordering Facility: [facility] Address: [address] [place] [address] Result Comment: The [place] Diabetes Association (ADA) provides guidance for cutoff values for fasting glucose and random glucose. The ADA defines fasting as no caloric intake for at least 8 hours. Fasting plasma glucose results between 100 to 125 mg/dL indicate increased risk for diabetes (prediabetes). Fasting plasma glucose results greater than or equal to 126 mg/dL meet the criteria for diagnosis of diabetes. In the absence of unequivocal hyperglycemia, results should be confirmed by repeat testing. In a patient with classic symptoms of hyperglycemia or hyperglycemic crisis, random plasma glucose results greater than or equal to 200 mg/dL meet the criteria for diagnosis of diabetes. Reference: Standards of Medical Care in Diabetes 2016, [place] Diabetes Association. Diabetes Care. 2016.39(Suppl 1). Performed By: #### 2 4323-8, 16214-4 #### [facility] CLIA [id number] [address] [place] [address] [place] Potassium [Moles/Vol] 4.4 mmol/L Normal 3.7-5.1 [facility] Comment on above: Order Comment: Richie baeza Type: BLOOD SPECIMEN Ordering Facility: [facility] Address: [address] [place] [address] Performed By: #### 2 4323-8, 66832-0 #### [facility] CLIA [id number] [address] [place] [address] [place] Protein [Mass/Vol] 7.2 g/dL Normal 6.3-8.0 [facility] Comment on above: Order Comment: Speci men Type: BLOOD SPECIMEN Ordering Facility: [facility] Address: [address] [place] [address] Performed By: #### 2 4323-8, 82639-0 #### [facility] CLIA [id number] [address] [place] [address] [place] Sodium [Moles/Vol] 141 mmol/L Normal 136-144 [facility] Comment on above: Order Comment: Speci men Type: BLOOD SPECIMEN Ordering Facility: [facility] Address: [address] [place] [address] Performed By: #### 2 4323-8, 63364-4 #### [facility] CLIA [id number] [address] [place] [address] [place] Urea nitrogen [Mass/Vol] 18 mg/dL Normal 7-21 [facility] Comment on above: Order Comment: Speci men Type: BLOOD SPECIMEN Ordering Facility: [facility] Address: [address] [place] [address] Performed By: #### 2 4323-8, 64250-1 #### [facility] CLIA [id number] [address] [place] [address] [place] Lipid 1996 panelon 5 Cholesterol [Mass/Vol] 147 mg/dL Normal <200 [facility] Comment on above: Order Comment: Speci men Type: BLOOD SPECIMEN Ordering Facility: [facility] Address: [address] [place] [address] Result Comment: <200 mg/dL, Desirable 200-239 mg/dL, Borderline high >239 mg/dL, High Performed By: #### 2 4323-8, 69352-3 #### [facility] CLIA [id number] [address] [place] [address] [place] Cholesterol in HDL [Mass/Vol] 62 mg/dL Normal >39 [facility] Comment on above: Order Comment: Richie felisha Type: BLOOD SPECIMEN Ordering Facility: [facility] Address: [address] [place] [address] Result Comment: 40-5 9 mg/dL, Acceptable >59 mg/dL, High: Negative risk factor for coronary heart disease <40 mg/dL, Low: Positive risk factor for coronary heart disease Performed By: #### 2 4323-8, 48775-5 #### [facility] CLIA [id number] [address] [place] [address] [place] [facility] Cholesterol in LDL [Mass/Vol] 73 mg/dL Normal <100 [facility] Comment on above: Order Comment: Richie baeza Type: BLOOD SPECIMEN Ordering Facility: [facility] Address: [address] [place] [address] Result Comment: <100 mg/dL, Optimal 100-129 mg/dL, Near optimal/above optimal 130-159 mg/dL, Borderline high 160-189 mg/dL, High >189 mg/dL, Very high Secondary prevention optimal LDL Cholesterol levels are recommended to be <70 mg/dL LDL cholesterol is calculated using the Smith-NIH equation. Performed By: #### 2 4323-8, 25365-5 #### [facility] CLIA [id number] [address] [place] [address] STATES OF [facility] Cholesterol in LDL/Cholesterol in HDL [Mass ratio] 1.18 {ratio} Normal <2.54 [facility] Comment on above: Order Comment: Richie men Type: BLOOD SPECIMEN Ordering Facility: [facility] Address: [address] [place] [address] Result Comment: Refe tj: 1. National Cholesterol Education Program ATP III Guideline At-A-Glance Quick Desk Reference: National Heart, Lung, and Blood [place]. National Institutes of Health. 2001: NIH Publication No. 01-3305. 2. An International Atherosclerosis Society position paper: global recommendations for the management of dyslipidemia: executive summary, Atherosclerosis. 2014: 232(2):410-413. Performed By: #### 2 4323-8, 26686-4 #### [facility] CLIA [id number] [address] [address] [place] Cholesterol in VLDL [Mass/Vol] 9 mg/dL Normal <30 [facility] Comment on above: Order Comment: Richie baeza Type: BLOOD SPECIMEN Ordering Facility: [facility] Address: [address] [place] [address] Performed By: #### 2 432-8, #### [facility] CLIA [id number] [address] [place] [address] [place] Cholesterol non HDL [Mass/Vol] 85 mg/dL Normal <130 [facility] Comment on above: Order Comment: Richie baeza Type: BLOOD SPECIMEN Ordering Facility: [facility] Address: [address] [place] [address] Result Comment: <130 mg/dL, Optimal 130-159 mg/dL, Near optimal/above optimal 160-189 mg/dL, Borderline high 190-219 mg/dL, High >219 mg/dL, Very high Secondary prevention optimal non HDL Cholesterol levels are recommended to be <100 mg/dL Performed By: #### 2 4323-8, 94596-5 #### [facility] CLIA [id number] [address] [place], [place] [address] [place] Cholesterol.total /Cholesterol in HDL [Mass ratio] 2.37 {ratio} Normal <5.10 [facility] Comment on above: Order Comment: Richie baeza Type: BLOOD SPECIMEN Ordering Facility: [facility] Address: [address] [place] [address] Performed By: #### 2 4323-8, 79533-0 #### [facility] CLIA [id number] [address] [place], [place] [id number] [place] FASTING TIME 12 hrs Normal [facility] Comment on above: Order Comment: Speci men Type: BLOOD SPECIMEN Ordering Facility: [facility] Address: [address] [place] [address] Performed By: #### 2 4323-8, 71960-8 #### [facility] CLIA [id number] [address] [place] [address] [place] Triglyceride [Mass/Vol] 57 mg/dL Normal <150 [facility] Comment on above: Order Comment: Speci men Type: BLOOD SPECIMEN Ordering Facility: [facility] Address: [address] [place] [address] Result Comment: <150 mg/dL, Normal 150-199 mg/dL, Borderline high 200-499 mg/dL, High >499 mg/dL, Very high Performed By: #### 2 4323-8, 45281-0 #### [facility] CLIA [id number] [address] [place] [address] [place] Chiropractic Reporton 2024 Chiropractic Report [facility] [address] [place] [address] OFFICE VISIT Date of Service: 08/30/24 MR#: [id number] Acct: [id number] Name: DIOGENES RUSSELL Rep #: [id number] : 1970 Provider: NAGI Henderson Age/Sex: 53/F Location[place] [facility] [place] Status: Signed Intake Vital Signs 08/22/24 15:35 Height 5 ft Intake Visit Reasons: Back Pain Chief Complaint: low back pain/neck Is patient in pain?: Yes (LBP) Pain scale (1-10): 2 Allergies No Known Allergies Allergy (Verified 08/30/24 14:42) Medications ???Medication ???Instructions ???Recorded ???Confirmed ???Type Hydrocortisone 2.5%/lidocaine 5% #30 ea 03/03/23 08/30/24 Rx suppository (cmpd) multivitamin 1 tab PO DAILY 03/03/23 08/30/24 H istory [facility] Medical History Contusion of right thumb Subungual hematoma of right thumb Hemorrhoids Surgical History H/O prior ablation treatment Social History Smoking Status: Never smoker alcohol intake: current alcohol intake frequency: a few times a month substance use type: does not use HPI Back Pain Chief Complaint: low back pain Visit Number: 2 Details: DIOGENES RUSSELL is a 53 year old F here today to f/u on low back pain. After her adjustment last week she had dry needling and a massage done on the same day. She reports she felt very sore after this initially but then she noticed relief. She complains of low back pain and stiffness that is equal bilaterally, this has improved since her last adjustment. She has been able to return to doing strength training every night for 30 minutes but still notices twinges of pain in her bilateral low back. She rates her pain 2/10 and describes it as a constant achiness. She has been treating pain at home with ice, stretching and Ibuprofen as needed. She denies new injury, numbness, tingling or radiculopathy at this time. She continues to get massages in between adjustments which help alleviate discomfort. She reports chiropractic adjustments are effective in relieving her back pain/discomfort but it gradually returns. Onset: 01/20/24 Location: Back Duration: intermittent Aggravating or associated factors: Bending, hiking,ADLs Relieving factors: Chiro,massage Pain Quality: aching and dull Exam Musc General: Yes normal posture, normal gait, joint tenderness and decreased range of motion Cervical Spine: Yes loss of normal cervical lordosis Thoracic/Lumber: Yes thoracic and lumbar spine normal to inspection, Yes paraspinal tenderness bilaterally in the lower lumbar and on the left greater than right (upper thoracic), Yes thoraco- lumbar spasm bilaterally (paraspinal L3-L5, glute max) in the lower lumbar and on the left greater than right (trap, rhomboid) and Yes misalignment T1, T2, T3, T5, T6, L3, L4, L5 and RIL Sacroiliac joints: on the right tender to palpation Office Procedures Procedures - Chiropractic Procedures Manipulation: Lumbar L4, Thoracic T5 and Pelvis RIL Manipulation: 3-4 regions Traction, Mechanical: Yes Patient Response: positive Assessment and Plan Assessment and Plan (1) Segmental and somatic dysfunction of thoracic region: Status: Acute (2) Segmental and somatic dysfunction of cervical region: Status: Acute (3) Segmental and somatic dysfunction of pelvic region: Status: Acute (4) Segmental and somatic dysfunction of lumbar region: Status: Acute Orders: Orders Chiropractic Treatments Today M99.01 - Segmental and somatic dysfunction of cervical region, M99.02 - Segmental and somatic dysfunction of thoracic region, M99.03 - Segmental and somatic dysfunction of lumbar region, M99.05 - Segmental and somatic dysfunction of pelvic region Plan Patient was treated without incident. Continue care at 1x/wk/4wks. She is also continuing care with PT and DN. Evaluate in 4 weeks for progress. Consider an MRI should patient not improve. Plan Details Goals Barriers: Goals Decrease pain Decrease spasm Improve ROM Decrease inflammation Follow Up: 1x/wk/4wks (2 of 4) Coding Level of Care Code No Charge Diagnoses Segmental and somatic dysfunction of thoracic region M99.02 Segmental and somatic dysfunction of cervical region M99.01 Segmental and somatic dysfunction of pelvic region M99.05 Segmental and somatic dysfunction of lumbar region M99.03 CPT Codes Procedures - Manipulation: 3-4 regions (49522) Procedures - Traction, Mechanical: Yes ([id number]) 08/30/24 1521 Date Kalyani Chapin Signature: Date (if applicable) CC: Normal [facility] Radiology Reporton 5 Radiology Report [facility] [address] [place] [address] 08/23/24 1613 MR#: [id number] Acct: [id number] Name: DIOGENES RUSSELL Rep #: [id number] : 1970 53 From: Kalyani Dinh D.C. PCP: Status:DEP AMB Location[place] [facility] X-Ray Report Impression Impression: Patients Name: DIOGENES RUSSELL : 1970 Views Submitted: a routine lumbosacral series was accomplished on 08/22/24 at [facility]. The lumbar series reveals in the AP view a left spinous process rotation from T11 to L4. There is a 9mm leg length inequality on the left ilium. There is anterior rotation of left yudy on sacrum. Sacrum is inferior on the right. It is difficult to view L5 R spinous, which could be a congenital defect. Soft tissue structures are unremarkable. The lateral lumbar view demonstrates a normal lordotic lumbar spine. The disc spaces are within normal limits for the patient???s age. Oblique views are normal. No indication of fracture or instability. IMPRESSION: 1. Normal lumbar spine, misalignment as detailed above. Dictated by Performing Provider: Kalyani Dinh Coding Level of Care Code Spine Lumbarsacral 4 views 08/23/24 1616 Date Kalyani Dinh D.C. Signed Normal [facility] Chiropractic Reporton 2024 Chiropractic Report [facility] [address] [place], [place] [id number] OFFICE VISIT Date of Service: 08/22/24 MR#: [id number] Acct: [id number] Name: DIOGENES RUSSELL Rep #: [id number] : 1970 Provider: NAGI Henderson Age/Sex: 53/F Location[place] [facility] Status: Signed Intake Vital Signs 08/01/24 10:59 Height 5 ft Intake Visit Reasons: Back Pain Chief Complaint: low back pain/neck Is patient in pain?: Yes (low back ) Pain scale (1-10): 3 Allergies No Known Allergies Allergy (Verified 08/22/24 15:23) Medications ???Medication ???Instructions ???Recorded ???Confirmed ???Type Hydrocortisone 2.5%/lidocaine 5% #30 ea 03/03/23 08/22/24 Rx suppository (cmpd) multivitamin 1 tab PO DAILY 03/03/23 08/22/24 H istory [facility] Medical History Contusion of right thumb Subungual hematoma of right thumb Hemorrhoids Surgical History H/O prior ablation treatment Social History Smoking Status: Never smoker alcohol intake: current alcohol intake frequency: a few times a month substance use type: does not use HPI Back Pain Chief Complaint: low back pain Visit Number: 1 Details: DIOGENES RUSSELL is a 53 year old F here today to f/u on low back pain. Patient continues to c/o constant low back pain that is equal bilaterally. She rates her pain 3/10. and describes it as a constant achiness. She has been treating pain at home with ice, stretching and Ibuprofen as needed. She states this has been bothering her since last January and she has tried strengthening her core as well and nothing has helped. She denies new injury, numbness, tingling or radiculopathy at this time. She continues to get massages in between adjustments which help alleviate discomfort. She reports chiropractic adjustments are effective in relieving her back pain/discomfort but it gradually returns. Onset: 01/20/24 Location: Back/neck Duration: intermittent Aggravating or associated factors: Bending, hiking,ADLs Relieving factors: Chiro,massage Pain Quality: aching and dull Exam Musc General: Yes normal posture, normal gait, joint tenderness and decreased range of motion Cervical Spine: Yes loss of normal cervical lordosis, Yes cervical muscular tenderness (mild), Yes cervical spasm left greater than right lower trapezius and paracervical muscles and Yes misalignment misalignment: C5 and C6 Thoracic/Lumber: Yes thoracic and lumbar spine normal to inspection, Yes paraspinal tenderness bilaterally in the lower lumbar and on the left greater than right (upper thoracic), Yes thoraco- lumbar spasm bilaterally (paraspinal L3-L5, glute max) in the lower lumbar and on the left greater than right (trap, rhomboid) and Yes misalignment T1, T2, T3, T5, T6, L3, L4, L5 and LIL Sacroiliac joints: on the left tender to palpation Office Procedures Procedures - Chiropractic Procedures Manipulation: Cervical C6, Lumbar L4, Thoracic T2 and T5 and Pelvis LIL Manipulation: 3-4 regions Traction, Mechanical: Yes Patient Response: positive Assessment and Plan Assessment and Plan (1) Segmental and somatic dysfunction of thoracic region: Status: Acute (2) Segmental and somatic dysfunction of cervical region: Status: Acute (3) Segmental and somatic dysfunction of pelvic region: Status: Acute (4) Segmental and somatic dysfunction of lumbar region: Status: Acute Orders: Orders L/S Spine Min 4 Views 08/22/24 M54.50 - Low back pain, unspecified, M99.03 - Segmental and somatic dysfunction of lumbar region Chiropractic Treatments 08/22/24 M99.01 - Segmental and somatic dysfunction of cervical region, M99.02 - Segmental and somatic dysfunction of thoracic region, M99.03 - Segmental and somatic dysfunction of lumbar region, M99.05 - Segmental and somatic dysfunction of pelvic region Plan Patient was treated without incident. She obtained lumbosacral xrays after visit which revealed a relative normal lumbar spine with misalignments consistent with adjustment levels. She is following up with PT for DN. Monitor patient response. Plan Details Goals Barriers: Goals Decrease pain Decrease spasm Improve ROM Decrease inflammation Follow Up: PRN Coding Level of Care Code No Charge Diagnoses Segmental and somatic dysfunction of thoracic region M99.02 Segmental and somatic dysfunction of cervical region M99.01 Segmental and somatic dysfunction of pelvic region M99.05 Segmental and somatic dysfunction of lumbar region M99.03 CPT Codes Procedures - Manipulation: 3-4 regions ([id number]) Procedures - Traction, Mechanical: Yes ([id number]) 08/23/24 1613 Date (more content not included)... Normal [facility] Chiropractic Reporton 2023 Chiropractic Report [facility] [address] [place] [id number] OFFICE VISIT Date of Service: 04/12/24 MR#: [id number] Acct: [id number] Name: DIOGENES RUSSELL Rep #: [id number] : 1970 Provider: NAGI Henderson Age/Sex: 53/F [place] [facility] [place] Status: Signed Intake Vital Signs 07/06/23 07:59 Height 5 ft Intake Visit Reasons: Back Pain Chief Complaint: low back pain/neck Allergies No Known Allergies Allergy (Verified 04/12/24 15:11) Medications ???Medication ???Instructions ???Recorded ???Confirmed ???Type Hydrocortisone 2.5%/lidocaine 5% #30 ea 03/03/23 04/12/24 Rx suppository (cmpd) multivitamin 1 tab PO DAILY 03/03/23 04/12/24 History PFSH Medical History Contusion of right thumb Subungual hematoma of right thumb Hemorrhoids Surgical History H/O prior ablation treatment Social History Smoking Status: Never smoker alcohol intake: current alcohol intake frequency: a few times a month substance use type: does not use HPI Back Pain Chief Complaint: low back pain Visit Number: 7 Details: DIOGENES RUSSELL is a 53 year old F here today to f/u on back pain. Patient advises her neck is feeling pretty good today but gets tight at times. She c/o mild low back achiness that is equal bilaterally. She rates her pain 3/10. She denies new injury, numbness, tingling or radiculopathy at this time. She continues to get massages in between adjustments which help alleviate discomfort. She treats pain at home with ice, stretching and Ibuprofen as needed. She reports chiropractic adjustments are effective in relieving her back pain/discomfort. Onset: 01/20/24 Location: Back/neck Duration: intermittent Aggravating or associated factors: Bending, hiking Relieving factors: Chiro,massage Pain Quality: aching and dull Exam Musc General: Yes normal posture, normal gait, joint tenderness and decreased range of motion Cervical Spine: Yes loss of normal cervical lordosis, Yes cervical muscular tenderness (mild) bilateral diffuse , Yes cervical spasm left greater than right lower trapezius and paracervical muscles and Yes misalignment misalignment: C5 and C6 Thoracic/Lumber: Yes thoracic and lumbar spine normal to inspection, Yes paraspinal tenderness bilaterally in the lower lumbar and on the left greater than right (upper thoracic), Yes thoraco- lumbar spasm bilaterally (paraspinal L3-L5, glute max) in the lower lumbar and on the left greater than right (trap, rhomboid) and Yes misalignment T1, T2, T3, T5, T6, L3, L4, L5 and LIL Sacroiliac joints: on the left tender to palpation Office Procedures Procedures - Chiropractic Procedures Manipulation: Cervical C6, Lumbar L3, Thoracic T2 and T5 and Pelvis LIL Manipulation: 3-4 regions Traction, Mechanical: Yes Patient Response: positive Assessment and Plan Assessment and Plan (1) Segmental and somatic dysfunction of thoracic region: Status: Acute (2) Segmental and somatic dysfunction of cervical region: Status: Acute (3) Segmental and somatic dysfunction of pelvic region: Status: Acute (4) Segmental and somatic dysfunction of lumbar region: Status: Acute Orders: Orders Chiropractic Treatments 04/12/24 M99.01 - Segmental and somatic dysfunction of cervical region, M99.02 - Segmental and somatic dysfunction of thoracic region, M99.03 - Segmental and somatic dysfunction of lumbar region, M99.05 - Segmental and somatic dysfunction of pelvic region Plan Patient was treated without incident. Continue care as needed. Plan Details Goals Barriers: Goals Decrease pain Decrease spasm Improve ROM Decrease inflammation Follow Up: PRN Coding Level of Care Code No Charge Diagnoses Segmental and somatic dysfunction of thoracic region M99.02 Segmental and somatic dysfunction of cervical region M99.01 Segmental and somatic dysfunction of pelvic region M99.05 Segmental and somatic dysfunction of lumbar region M99.03 CPT Codes Procedures - Manipulation: 3-4 regions ([id number]) Procedures - Traction, Mechanical: Yes ([id number]) 04/13/24 0821 Date Kalyani Chapin Signature: Date (if applicable) CC: Normal [facility] Chiropractic Reporton 2023 Chiropractic Report [facility] [place] [address] OFFICE VISIT Date of Service: 03/15/24 MR#: [id number] Acct: [id number] Name: DIOGENES RUSSELL Rep #: [id number] : 1970 Provider: NAGI Henderson Age/Sex: 53/F Location[place] [facility] [place] Status: Signed Intake Vital Signs 07/06/23 07:59 Height 5 ft Intake Visit Reasons: Back Pain Chief Complaint: low back pain/neck Is patient in pain?: Yes Pain scale (1-10): 3 Allergies No Known Allergies Allergy (Verified 03/15/24 09:31) PFSH Medical History Contusion of right thumb Subungual hematoma of right thumb Hemorrhoids Surgical History H/O prior ablation treatment Social History Smoking Status: Never smoker alcohol intake: current alcohol intake frequency: a few times a month substance use type: does not use HPI Back Pain Chief Complaint: low back pain Visit Number: 6 Details: DIOGENES RUSSELL is a 53 year old F here today to f/u on neck/ upper back pain. Patient advises that she continues to improve with every visit and she is a lot more comfortable. She states that her neck is feeling good today and she has been adamantly working at strengthening and stretching those muscles and it is helping a lot. She c/o low back achiness and tightness that is equal bilaterally and does not radiate into her legs. She denies new injury, numbness or tingling at this time. She has been getting massages in between adjustments which help alleviate discomfort. She treats pain at home with ice, stretching and Ibuprofen as needed. She reports chiropractic adjustments are effective in relieving her back pain/discomfort. Onset: 01/20/24 Location: Back/neck Duration: intermittent Aggravating or associated factors: Bending, hiking Relieving factors: Chiro,massage Pain Quality: aching and dull Exam Musc General: Yes normal posture, normal gait, joint tenderness and decreased range of motion Cervical Spine: Yes loss of normal cervical lordosis, Yes cervical muscular tenderness (mild) right greater than left lower , Yes cervical spasm left greater than right lower trapezius and paracervical muscles and Yes misalignment misalignment: C5 and C6 Thoracic/Lumber: Yes thoracic and lumbar spine normal to inspection, Yes paraspinal tenderness bilaterally in the lower lumbar and on the left greater than right (upper thoracic), Yes thoraco- lumbar spasm bilaterally (paraspinal L3-L5, glute max) in the lower lumbar and on the left greater than right (trap, rhomboid) and Yes misalignment T1, T2, T3, T5, T6, L3, L4, L5 and LIL Sacroiliac joints: on the left tender to palpation Office Procedures Procedures - Chiropractic Procedures Manipulation: Cervical C6, Lumbar L3, Thoracic T2 and T5 and Pelvis LIL Manipulation: 3-4 regions Patient Response: positive Assessment and Plan Assessment and Plan (1) Segmental and somatic dysfunction of thoracic region: Status: Acute (2) Segmental and somatic dysfunction of cervical region: Status: Acute (3) Segmental and somatic dysfunction of pelvic region: Status: Acute (4) Segmental and somatic dysfunction of lumbar region: Status: Acute Orders: Orders Chiropractic Treatments Today M99.01 - Segmental and somatic dysfunction of cervical region, M99.02 - Segmental and somatic dysfunction of thoracic region, M99.03 - Segmental and somatic dysfunction of lumbar region, M99.05 - Segmental and somatic dysfunction of pelvic region Plan Patient was treated without incident. Continue care as needed. Plan Details Goals Barriers: Goals Decrease pain Decrease spasm Improve ROM Decrease inflammation Follow Up: PRN Coding Level of Care Code No Charge Diagnoses Segmental and somatic dysfunction of thoracic region M99.02 Segmental and somatic dysfunction of cervical region M99.01 Segmental and somatic dysfunction of pelvic region M99.05 Segmental and somatic dysfunction of lumbar region M99.03 CPT Codes Procedures - Manipulation: 3-4 regions ([id number]) 03/15/24 1119 Date Kalyani Chapin Signature: Date (if applicable) CC: Normal [facility] Chiropractic Reporton 2023 Chiropractic Report [facility] [address] [place] [id number] OFFICE VISIT Date of Service: 02/04/24 MR#: [id number] Acct: [id number] Name: DIOGENES RUSSELL Rep #: [id number] : 1970 Provider: NAGI Henderson Age/Sex: 53/F Location: [facility] [place] Status: Signed Intake Vital Signs 07/06/23 07:59 Height 5 ft Intake Visit Reasons: Back Pain Chief Complaint: low back pain Is patient in pain?: Yes (low back ) Pain scale (1-10): 6 Allergies No Known Allergies Allergy (Verified 02/04/24 16:08) Medications ???Medication ???Instructions ???Recorded ???Confirmed ???Type Hydrocortisone 2.5%/lidocaine 5% #30 ea 03/03/23 02/04/24 Rx suppository (cmpd) multivitamin 1 tab PO DAILY 03/03/23 02/04/24 History PFSH Medical History Contusion of right thumb Subungual hematoma of right thumb Hemorrhoids Surgical History H/O prior ablation treatment Social History Smoking Status: Never smoker alcohol intake: current alcohol intake frequency: a few times a month substance use type: does not use HPI Back Pain Chief Complaint: low back pain Visit Number: 5 Details: DIOGENES RUSSELL is a 53 year old F here today to f/u on neck/ upper back pain. Patient advises her neck and upper back feels great and has improved since her last adjustment. She c/o low back pain that began insidiously a week and a half ago. She denies known cause but describes it as a achy pain and is tender to touch inthe middle of her low back just to the left and right of her lumbar spine. She denies new injury, numbness, tingling, or radiculopathy at this time. She has been getting massages in between adjustments. She treats pain at home with ice, stretching and Ibuprofen as needed. She reports chiropractic adjustments are effective in relieving her back pain/discomfort. Onset: 01/20/24 Location: Back/neck Duration: intermittent Aggravating or associated factors: Bending, hiking Relieving factors: Chiro,massage Pain Quality: aching and dull Exam Musc General: Yes normal posture, normal gait, joint tenderness and decreased range of motion Cervical Spine: Yes loss of normal cervical lordosis, Yes cervical muscular tenderness (mild) bilateral diffuse , Yes cervical spasm (mild) left greater than right lower trapezius and paracervical muscles and Yes misalignment misalignment: C5 and C6 Thoracic/Lumber: Yes thoracic and lumbar spine normal to inspection, Yes paraspinal tenderness bilaterally in the lower lumbar and on the left greater than right (upper thoracic), Yes thoraco- lumbar spasm bilaterally (paraspinal L3-L5, glute max) in the lower lumbar and on the left greater than right (trap, rhomboid) and Yes misalignment T1, T2, T3, T5, T6, L3, L4, L5 and LIL Sacroiliac joints: on the left tender to palpation Office Procedures Procedures - Chiropractic Procedures Manipulation: Cervical C6, Lumbar L3, Thoracic T2 and T5 and Pelvis LIL Manipulation: 3-4 regions Traction, Mechanical: Yes Patient Response: positive Assessment and Plan Assessment and Plan (1) Segmental and somatic dysfunction of thoracic region: Status: Acute (2) Segmental and somatic dysfunction of cervical region: Status: Acute (3) Segmental and somatic dysfunction of pelvic region: Status: Acute (4) Segmental and somatic dysfunction of lumbar region: Status: Acute Orders: Orders Chiropractic Treatments Today M99.01 - Segmental and somatic dysfunction of cervical region, M99.02 - Segmental and somatic dysfunction of thoracic region, M99.03 - Segmental and somatic dysfunction of lumbar region, M99.05 - Segmental and somatic dysfunction of pelvic region Plan Patient was treated without incident. Continue care as needed. Plan Details Goals Barriers: Goals Decrease pain Decrease spasm Improve ROM Decrease inflammation Follow Up: PRN Coding Level of Care Code No Charge Diagnoses Segmental and somatic dysfunction of thoracic region M99.02 Segmental and somatic dysfunction of cervical region M99.01 Segmental and somatic dysfunction of pelvic region M99.05 Segmental and somatic dysfunction of lumbar region M99.03 CPT Codes Procedures - Manipulation: 3-4 regions ([id number]) Procedures - Traction, Mechanical: Yes ([id number]) 02/04/24 1655 Date Kalyani Chapin Signature: Date (if applicable) CC: Normal [facility] Chiropractic Reporton 2023 Chiropractic Report [facility] [address] [place] [address] OFFICE VISIT Date of Service: 01/07/24 MR#: [id number] Acct: [id number] Name: DIOGENES RUSSELL Rep #: [id number] : 1970 Provider: NAGI Henderson Age/Sex: 53/F Location: [facility] [place] Status: Signed Intake Vital Signs 07/06/23 07:59 Height 5 ft Intake Visit Reasons: Back Pain Chief Complaint: neck and upper back pain Allergies No Known Allergies Allergy (Verified 01/07/24 15:06) Medications ???Medication ???Instructions ???Recorded ???Confirmed ???Type Hydrocortisone 2.5%/lidocaine 5% #30 ea 03/03/23 01/07/24 Rx suppository (cmpd) multivitamin 1 tab PO DAILY 03/03/23 01/07/24 History PFSH Medical History Contusion of right thumb Subungual hematoma of right thumb Hemorrhoids Surgical History H/O prior ablation treatment Social History Smoking Status: Never smoker alcohol intake: current alcohol intake frequency: a few times a month substance use type: does not use HPI Back Pain Chief Complaint: low back pain Visit Number: 4 Details: DIOGENES RUSSELL is a 53 year old F here today to f/u on neck/ upper back pain. Patient advises her neck and upper back has improved since her last adjustment. She has been getting massages in between adjustments which has helped to keep her pain from flaring up.She denies new injury, numbness, tingling, or radiculopathy at this time. She treats pain at home with ice, stretching and Ibuprofen as needed. She reports chiropractic adjustments are effective in relieving her back pain/discomfort. Location: Back/neck Duration: intermittent Aggravating or associated factors: Bending, hiking Relieving factors: Chiro,massage Pain Quality: aching and dull Exam Musc General: Yes normal posture, normal gait, joint tenderness and decreased range of motion Cervical Spine: Yes cervical muscular tenderness (mild) bilateral diffuse , Yes cervical spasm left greater than right lower trapezius and paracervical muscles and Yes misalignment misalignment: C5 and C6 Thoracic/Lumber: Yes thoracic and lumbar spine normal to inspection, Yes paraspinal tenderness bilaterally in the lower lumbar and on the left greater than right (upper thoracic), Yes thoraco- lumbar spasm bilaterally (paraspinal L3-L5) in the lower lumbar and on the left greater than right (trap, rhomboid) and Yes misalignment T1, T2, T3, T5, T6, L3, L4, L5 and LIL Sacroiliac joints: on the left tender to palpation Office Procedures Procedures - Chiropractic Procedures Manipulation: Cervical C6, Lumbar L3, Thoracic T2 and T5 and Pelvis LIL Manipulation: 3-4 regions Patient Response: positive Assessment and Plan Assessment and Plan (1) Segmental and somatic dysfunction of cervical region: Status: Acute (2) Segmental and somatic dysfunction of pelvic region: Status: Acute (3) Segmental and somatic dysfunction of lumbar region: Status: Acute (4) Segmental and somatic dysfunction of thoracic region: Status: Acute Orders: Orders Chiropractic Treatments 01/07/24 M99.01 - Segmental and somatic dysfunction of cervical region, M99.03 - Segmental and somatic dysfunction of lumbar region, M99.05 - Segmental and somatic dysfunction of pelvic region Plan Patient was treated without incident. Continue care as needed. Plan Details Goals Barriers: Goals Decrease pain Decrease spasm Improve ROM Decrease inflammation Follow Up: PRN Coding Level of Care Code No Charge Diagnoses Segmental and somatic dysfunction of cervical region M99.01 Segmental and somatic dysfunction of pelvic region M99.05 Segmental and somatic dysfunction of lumbar region M99.03 Segmental and somatic dysfunction of thoracic region M99.02 CPT Codes Procedures - Manipulation: 3-4 regions ([id number]) 01/11/24 0859 Date Kalyani Chapin Signature: Date (if applicable) CC: Normal [facility]ropractic Reporton 2023 Chiropractic Report [facility] [address] [place] [address] OFFICE VISIT Date of Service: 12/01/23 MR#: [id number] Acct: [id number] Name: DIOGENES RUSSELL Rep #: [id number] : 1970 Provider: NAGI Henderson Age/Sex: 53/F [place] [facility] [place] Status: Signed Intake Vital Signs 07/06/23 07:59 Height 5 ft Intake Visit Reasons: Back Pain Chief Complaint: neck and upper back pain Is patient in pain?: Yes (low back ) Pain scale (1-10): 3 Allergies No Known Allergies Allergy (Verified 12/01/23 15:33) Medications ???Medication ???Instructions ???Recorded ???Confirmed ???Type Hydrocortisone 2.5%/lidocaine 5% #30 ea 03/03/23 12/01/23 Rx suppository (cmpd) multivitamin 1 tab PO DAILY 03/03/23 12/01/23 History [facility] Medical History Contusion of right thumb Subungual hematoma of right thumb Hemorrhoids Surgical History H/O prior ablation treatment Social History Smoking Status: Never smoker alcohol intake: current alcohol intake frequency: a few times a month substance use type: does not use HPI Back Pain Chief Complaint: low back pain Visit Number: 3 Details: DIOGENES RUSSELL is a 53 year old F here today to f/u on neck/ upper back pain. Patient advises her neck and upper back pain has greatly since her last adjustment. She is still experiencing some low back pain that is equal across from left to right. She denies new injury, numbness, tingling, or radiculopathy at this time. She treats pain at home with ice, stretching and taking Ibuprofen. She reports chiropractic adjustments are effective in relieving her back pain/discomfort. Location: Back Duration: frequent Aggravating or associated factors: Bending, hiking Relieving factors: Chiro Pain Quality: aching and cramping Exam Musc General: Yes normal posture, normal gait, joint tenderness and decreased range of motion Cervical Spine: Yes cervical muscular tenderness (mild), Yes cervical spasm left greater than right lower trapezius and paracervical muscles and Yes misalignment misalignment: C5 and C6 Thoracic/Lumber: Yes thoracic and lumbar spine normal to inspection, Yes paraspinal tenderness bilaterally in the lower lumbar and on the left greater than right (upper thoracic), Yes thoraco- lumbar spasm bilaterally (paraspinal L3-L5) in the lower lumbar and on the left greater than right (trap, rhomboid) and Yes misalignment T1, T2, T3, T5, T6, L3, L4, L5 and LIL Sacroiliac joints: on the left tender to palpation Office Procedures Procedures - Chiropractic Procedures Manipulation: Cervical C5, Lumbar L3, Thoracic T2 and T5 and Pelvis LIL Manipulation: 3-4 regions Traction, Mechanical: Yes Patient Response: positive Assessment and Plan Assessment and Plan (1) Back pain: Status: Acute Qualifiers: Back pain location: low back pain Chronicity: acute Back pain laterality: bilateral Sciatica presence: without sciatica Qualified Code(s): M54.50 - Low back pain, unspecified (2) Segmental and somatic dysfunction of lumbar region: Status: Acute (3) Segmental and somatic dysfunction of pelvic region: Status: Acute (4) Segmental and somatic dysfunction of cervical region: Status: Acute (5) Segmental and somatic dysfunction of thoracic region: Status: Acute Orders: Orders Chiropractic Treatments Today M54.50 - Low back pain, unspecified, M99.01 - Segmental and somatic dysfunction of cervical region, M99.02 - Segmental and somatic dysfunction of thoracic region, M99.03 - Segmental and somatic dysfunction of lumbar region, M99.05 - Segmental and somatic dysfunction of pelvic region Plan Patient was treated without incident. Continue care as needed. Plan Details Goals Barriers: Goals Decrease pain Decrease spasm Improve ROM Decrease inflammation Follow Up: PRN Coding Level of Care Code No Charge Diagnoses Acute bilateral low back pain without sciatica M54.50 Back pain location: low back pain Chronicity: acute Back pain laterality: bilateral Sciatica presence: without sciatica Segmental and somatic dysfunction of lumbar region M99.03 Segmental and somatic dysfunction of pelvic region M99.05 Segmental and somatic dysfunction of cervical region M99.01 Segmental and somatic dysfunction of thoracic region M99.02 CPT Codes Procedures - Manipulation: 3-4 regions (32196) Procedures - Traction, Mechanical: Yes ([id number]) 12/01/23 1652 Date Kalyani Chapin Signature: Date (if applicable) CC: Normal [facility] COLONOSCOPY SCREENINGon 06-26 [facility] MRI SHOULDER W/O CONTRAST [facility] 12-31-2021 MRI SHOULDER W/O CONTRAST RIGHT ORIGINAL EXAMINATION: MRI OF THE RIGHT SHOULDER WITHOUT CONTRAST12/31/2021 9:09 am TECHNIQUE: Multiplanar multisequence MRI of the right shoulder was performed without the administration of intravenous contrast. COMPARISON: Shoulder radiographs 12/17/2021 HISTORY: ORDERING SYSTEM PROVIDED HISTORY: Reason for Exam: right shoulder pain. FINDINGS: MUSCLES AND TENDONS: The supraspinatus tendon is intact. The infraspinatus tendon is intact. The teres minor tendon is intact. Suspect mild insertional subscapularis tendinosis superiorly without definite tear. The tendon of the long head of the biceps is intact and is seated within the bicipital groove distally. No significant rotator cuff muscle atrophy or edema is evident. No mass is evident at the suprascapular notch, spinoglenoid notch, or the quadrilateral space. OSSEOUS STRUCTURES AND JOINTS: No displaced glenoid labral tear is evident on this non-arthrographic examination. Normal variant of sublabral sulcus of the anterior superior quadrant. Labral degeneration is noted by a blunted and frayed morphology is noted of the posterosuperior, posterior,and posteroinferior labrum respectively. Additional anterior labral degeneration. There is no significant degenerative change of the glenohumeral joint. There is mild degenerative change of the acromioclavicular joint with appositional bone marrow edema and small marginal osteophytes. The acromion is Type I in morphology without significant lateral downsloping. There is no significant glenohumeral joint effusion. No fracture or dislocation is evident. Minimal cystic changes are seen at the greater tubercle of the humerus. Bone marrow signal intensity is otherwise within normal limits. No visualized marrow replacing osseous lesions. SOFT TISSUES: There is trace volume of fluid in the subacromial subdeltoid bursa. There is no significant volume of fluid in the subcoracoid bursa. Mildly thickened morphology of the axillary recess capsule and coracohumeral ligament. Otherwise, associated soft tissues of the shoulder are grossly unremarkable. IMPRESSION: 1. Suspect mild insertional subscapularis tendon superiorly without definite tear. Minimal subacromial-subdeltoi d bursitis. 2. Mild acromioclavicular osteoarthrosis. 3. Labral degeneration. 4. Findings which may reflect adhesive capsulitis in the appropriate clinical setting. Interpreted by: Josh Carter DO Preliminary Report By: Josh Carter DO Electronically signed By Josh Carter DO Dictated Date: 12/31/2021 10:29:42 AM Prelim Date: 12/31/2021 10:38:00 AM Sign Date: 12/31/2021 10:38:00 AM Ordering Provider: CELSA CASTAÑEDA [facility] [place] SHOULDER MINIMUM 2 VIEWS RIGHTon 12-18-2021 XR SHOULDER MINIMUM 2 VIEWS RIGHT ORIGINAL EXAMINATION: 4 XRAY VIEWS OF THE RIGHT SHOULDER 12/17/2021 4:22 pm COMPARISON: None. HISTORY: ORDERING SYSTEM PROVIDED HISTORY: Reason for Exam: shoulder pain since March 2021 FINDINGS: No acute fracture or dislocation. No significant degenerative changes of the acromioclavicular and glenohumeral joints. No periarticular calcifications visualized. Visualized osseous thoracic structures are without acute abnormality. IMPRESSION: 1. Negative shoulder series. I have personally reviewed the images of this examination and agree with the resident's findings and interpretation. Interpreted by: Josh Matthews MD Preliminary Report By: Omari Aguilar Electronically signed By Josh Matthews MD Dictated Date: 12/18/2021 9:26:10 AM Prelim Date: 12/18/2021 10:57:46 AM Sign Date: 12/18/2021 10:57:46 AM Ordering Provider: CELSA CASTAÑEDA [facility] [place] Office Visit: Spine Visit- M id back painon 03-26-2017 Documentation of current medications (procedure) Done Invalid Interpretation Code [facility] Work Phone: Documentation of current medications (procedure) T Invalid Interpretation Code [facility] Work Phone: Office Visit: Spine Visiton 04-10-2016 Dietary management education, guidance, and counseling (procedure) yes Invalid Interpretation Code [facility] Work Phone: Tobacco smoking status NHIS Never Invalid Interpretation Code [facility] Work Phone: Tobacco smoking status NHIS Tobacco smoking status NHIS Invalid Interpretation Code [facility] Work Phone: Tobacco use HS Never smoker Invalid Interpretation Code [facility] Work Phone: Vital Signs Date Time Vital Sign Value Performing Clinician Facility 09-09-2024 08:06-0400 Body height 157.4 cm Mary Quinonez SCREEN MAKER.MANAGER UTILITY Work Phone: [facility] 09-09-2024 08:06-0400 Body mass index (BMI) [Ratio] 22.04 kg/m2 Mary Podlogar SCREEN MAKER.MANAGER UTILITY Work Phone: [facility] 09-09-2024 08:06-0400 Body weight 54.61 kg Mary Podlogar SCREEN MAKER.MANAGER UTILITY Work Phone: [facility] 09-09-2024 08:06-0400 Diastolic blood pressure 64 mm[Hg] Mary Podlogar SCREEN MAKER.MANAGER UTILITY Work Phone: [facility] 09-09-2024 08:06-0400 Heart rate 73 /min Mary Podlogar SCREEN MAKER.MANAGER UTILITY Work Phone: [facility] 09-09-2024 08:06-0400 Respiratory rate 18 /min Mary Podlogar SCREEN MAKER.MANAGER UTILITY Work Phone: [facility] 09-09-2024 08:06-0400 SaO2% (BldA) [Mass fraction] 98 % Mary Podlogar SCREEN MAKER.MANAGER UTILITY Work Phone: [facility] 09-09-2024 08:06-0400 Systolic blood pressure 104 mm[Hg] Mary Podlogar SCREEN MAKER.MANAGER UTILITY Work Phone: [facility] 08-22-2024 15:35-0400 Body height 152.[address] Kalyani Dinh DC Work Phone: [facility] 07-21-2022 13:00-0400 Diastolic blood pressure 63 mm[Hg] Carla Briones MD Work Phone: [facility] 07-21-2022 13:00-0400 Heart rate 81 /min Carla Briones MD Work Phone: [facility] 07-21-2022 13:00-0400 SaO2% (BldA) [Mass fraction] 100 % Carla Briones MD Work Phone: [facility] 07-21-2022 13:00-0400 Systolic blood pressure 110 mm[Hg] Carla Briones MD Work Phone: [facility] 07-21-2022 12:40-0400 Respiratory rate 16 /min Carla Briones MD Work Phone: [facility] 07-21-2022 11:37-0400 Body temperature 98.6 [degF] Carla Briones MD Work Phone: [facility] 06-24-2022 13:01-0500 Body height 157.5 cm Libra Navarro PA-C Work Phone: [facility] 06-24-2022 13:01-0500 Body temperature 97.59 [degF] Libra Navarro PA-C Work Phone: [facility] 06-24-2022 13:01-0500 Body weight 56.34 kg Libra Bandar PA-C Work Phone: [facility] 06-24-2022 13:01-0500 Diastolic blood pressure 76 mm[Hg] Libra Navarro PA-C Work Phone: [facility] 06-24-2022 13:01-0500 Heart rate 93 /min Libra Navarro PA-C Work Phone: [facility] 06-24-2022 13:01-0500 SaO2% (BldA) [Mass fraction] 100 % Libra Navarro PA-C Work Phone: [facility] 06-24-2022 13:01-0500 Systolic blood pressure 108 mm[Hg] Libra Navarro PA-C Work Phone: [facility] 04-10-2016 11:02-0500 BMI (Body Mass Index) 21.95 kg/m2 Kalyani Dinh DC [facility] Work Phone: 04-10-2016 11:02-0500 Height 157.48 cm Kalyani Dinh DC [facility] Work Phone: 04-10-2016 11:02-0500 Weight 54.43 kg Kalyani Dinh DC [facility] Work Phone: Encounters Encounter Date Encounter Type Care Provider Facility Start: 10-13-2024 End: 10-13-[address] Andrey Pérez MD Work Phone: [facility] Work Phone: Start: 10-13-2024 End: 10-13-[address] Kalyani Dinh DC -[facility] Work Phone: Start: 09-28-2024 End: 09-28-[address] Kalyani Dinh DC -[facility] Work Phone: Start: 09-28-2024 End: 09-28-2024 ambulatory Andrey Pérez Facility:[facility] Start: 09-13-2024 End: 09-13-[address] Kalyani Dinh DC [facility] Work Phone: Start: 09-13-2024 End: 09-13-2024 ambulatory Kalyani Dinh [facility] Work Phone: Start: 09-12-2024 End: 09-12-2024 Follow-up encounter Susy Moss MA [facility] Comment on above: Results Start: 09-09-2024 Encounter for genera l adult medical examination without abnormal findings MARY QUINONEZ [facility] Start: 09-09-2024 End: 09-09-2024 Patient encounter procedure Mary Quinonez APRN.MANAGER UTILITY Work Phone: [facility] Comment on above: Encounter for medica l examination to establish care (Primary Dx); Screening for hyperlipidemia; Encounter for screening mammogram for breast cancer Start: 09-09-2024 End: 09-09-2024 Patient encounter status Mary Quinonez APRN.MANAGER UTILITY Work Phone: [facility] Start: 09-09-2024 End: 09-09-2024 ambulatory MARY QUINONEZ Facility:[facility] Start: 08-30-2024 End: 08-30-[address] Kalyani Dinh DC -[facility] Work Phone: Start: 08-30-2024 End: 08-30-2024 ambulatory Kalyani Dossi Facility:[facility] Start: 08-23-2024 ambulatory Andrey Barrerai lity:[facility] Start: 08-23-2024 Non-patient / Non-visit Dr. Kalyani Henderson [facility] Work Phone: Start: 08-22-2024 End: 08-22-[address] Kalyani Dinh [facility] Start: 08-22-2024 End: 08-22-2024 ambulatory Kalyani Dossi Facility:[facility] Start: 04-12-2024 End: 04-12-2024 ambulatory Kalyani Dossi Facility:[facility] Start: 03-15-2024 End: 03-15-2024 ambulatory Kalyani Dossi Facility:[facility] Start: 02-04-2024 End: 02-04-2024 ambulatory Kalyani Dossi Facility:[facility] Start: 01-07-2024 End: 01-07-2024 ambulatory Kalyani Dossi Facility:[facility] Start: 12-01-2023 End: 12-01-2023 ambulatory Kalyani Dossi Facility:[facility] Start: 07-21-2022 End: 07-21-2022 Subsequent hospital visit by physician Carla Briones MD Work Phone: Ambulatory Surgery Comment on above: Special screening fo r malignant neoplasms, colon [Z12.11] Start: 06-24-2022 End: 06-24-2022 Patient encounter procedure Libra Portillo PA-C Work Phone: General Surgery Comment on above: Encounter for screen ing for malignant neoplasm of colon (Primary Dx); History of hemorrhoids Start: 12-17-2021 End: 12-17-2021 Patient encounter procedure CELSA CASTAÑEDA SCREEN MAKER-MANAGER UTILITY [facility] Start: 10-29-2021 End: 10-29-2021 Discharged Recurring AMERICAN HISTORY TEACHER-C Celsa Castañeda AMERICAN HISTORY TEACHER Work Phone: [facility] Start: 09-03-2021 End: 09-03-2021 Patient encounter procedure AMERICAN HISTORY TEACHER-Lindsey Castañeda AMERICAN HISTORY TEACHER Work Phone: [facility] Procedures Date Procedure Procedure Detail Performing Clinician Start: 09-09-2024 Lipid 1996 panel - S latha or Plasma Susy Moss MA Start: 08-22-2024 X-ray of lumbosacral spine Dr. Kalyani Dinh DC Work Phone: Start: 07-21-2022 Colonoscopy flx dx w /collj spec when pfrmd Libra BAJWA-C Work Phone: Start: 07-21-2022 Colonoscopy Carla Briones MD Work Phone: Start: 08-27-2017 Mammography Libra clarke PA-C Work Phone: Start: 03-26-2017 End: 03-26-2017 Chiropractic manipulative tx spinal 1-2 regions Kalyani Dinh DC Work Phone: Start: 04-15-2016 End: 04-15-2016 Chiropractic manipulative tx spinal 1-2 regions Kalyani Garciasi NAGI Work Phone: Start: 04-10-2016 End: 04-10-2016 Chiropractic manipulative tx spinal 1-2 regions Kalyani Garciasi NAGI Work Phone: MRI guided ablation of uterine fibroid CELSA CASTAÑEDA SCREEN MAKER-MANAGER UTILITY Tonsillectomy and adenoidectomy CELSA CASTAÑEDA SCREEN MAKER-MANAGER UTILITY Plan of Treatment Date Care Activity Detail Author Start: 07-21-2032 Colonoscopy Colonoscopy [facility] Start: 07-21-2032 Colorectal Cancer Screening Colorectal Cancer Screening [facility] Start: 07-21-2032 Screening for malign ant neoplasm of colon [facility] Start: 09-09-2029 Lipid panel [facility] Start: 09-10-2027 Diabetes Screening Diabetes Screenin g [facility] Start: 09-10-2027 HPV Testing HPV Testing [facility] Start: 09-10-2027 Pap Testing Pap Testing [facility] Start: 09-10-2027 Screening for malign ant neoplasm of cervix Cervical Cancer Screening [facility] Start: 09-11-2025 End: 09-11-2025 Patient encounter procedure 09/11/2025 8:00 AM EDT Office Visit [facility] [address] [place] [address] PodMary machado APRN.MANAGER UTILITY [address] [facility] [place] [address] Yearly physical [facility] Comment on above: Yearly physical Start: 09-09-2025 Hepatitis C screening Hepatitis C Sc reening [facility] Comment on above: Postponed from 11/14 (Declined at this time) Start: 09-09-2025 HIV screening HIV Screening [facility] Comment on above: Postponed from 11/14 (Declined at this time) Start: 12-26-2024 Influenza vaccination Influenz a Vaccine (Season Ended) [facility] Start: 10-24-2024 ambulatory Ambulatory Facility:[facility] Start: 09-09-2024 End: 12-09-2024 CBC W Auto Differential panel - Blood [facility] Comment on above: Expected: 09/09/2024 , Expires: 12/09/2024 Start: 09-09-2024 End: 12-09-2024 Comprehensive metabolic 2000 panel - Serum or Plasma [facility] Comment on above: Expected: 09/09/2024 , Expires: 12/09/2024 Start: 09-09-2024 End: 12-09-2024 Lipid 1996 panel - Serum or Plasma [facility] Work Phone: Comment on above: Expected: 09/09/2024 , Expires: 12/09/2024 Start: 12-27-2023 Covid-19 Vaccine ( season) Covid-19 Vaccine ( season) [facility] Start: 10-01-2023 Mammography Mammogram Screening [facility] Start: 10-01-2023 Screening for malign ant neoplasm of breast Mammogram Screening [facility] Start: 12-26-2022 Influenza vaccination Influenza Vacc ine (#1) [facility] Start: 08-26-2022 HPV TESTING HPV TESTING [facility] Start: 08-26-2022 PAP TESTING PAP TESTING [facility] Start: 04-27-2022 DEPRESSION ASSESSMENT DEPRESSION ASS ESSMENT [facility] Start: 12-26-2021 Influenza vaccination INFLUENZA (#1) [facility] Start: 11-14-2021 Pneumococcal Vaccine : 50+ (1 of 1 - PCV) Pneumococcal Vaccine: 50+ (1 of 1 - PCV) [facility] Start: 11-14-2021 SHINGRIX VACCINE (1 of 2) SHINGRIX VACCINE (1 of 2) [facility] Start: 08-27-2018 Mammography MAMMOGRAM [facility] Start: 03-26-2017 End: 03-26-2017 Appointment Appointment [facility] Work Phone: Start: 11-14-2016 COLOGUARD (FIT-DNA) COLOGUARD (FIT-D NA) [facility] Start: 11-14-2016 Colonoscopy COLONOSCOPY [facility] Start: 11-14-2016 COLORECTAL CANCER SCREENING COLORECTAL CANCER SCREENING [facility] Start: 11-14-[address] COLONOGRAPHY [facility] Start: 11-14-2016 DIABETES SCREEN DIABETES SCREEN [facility] Start: 11-14-2016 Diabetes Screening Diabetes Screenin g [facility] Start: 11-14-2016 FECAL OCCULT BLOOD FECAL OCCULT BLOO D [facility] Start: 11-14-2016 Lipid 1996 panel - Serum or Plasma Lipid Screening [facility] Start: 11-14-2016 Lipid panel Lipid Screening [facility] Start: 11-14-2016 LIPID SCREEN LIPID SCREEN [facility] Start: 11-14-2016 Screening for malign ant neoplasm of colon [facility] Start: 11-14-2016 SIGMOIDOSCOPY SIGMOIDOSCOPY [facility] Start: 11-14-1990 Hepatitis B Vaccine (1 of 3 - 19+ 3-dose series) Hepatitis B Vaccine (1 of 3 - 19+ 3-dose series) [facility] Start: 11-14-1990 Urine microalbumin profile [facility] Start: 11-14-1989 Anxiety Screening Anxiety Screening [facility] Start: 11-14-1989 Depression Screening Depression Scre ening [facility] Start: 11-14-1989 HEPATITIS C SCREENING HEPATITIS C SC VANESSANING [facility] Start: 11-14-1989 HIV SCREENING HIV SCREENING [facility] Start: 05-17-1972 COVID-19 VACCINE (#1) COVID-19 VACCI NE (#1) [facility] Start: 1971 HEPATITIS B (1 of 3 - 3-dose series) HEPATITIS B (1 of 3 - 3-dose series) [facility] Start: 1970 Hepatitis B Vaccine (1 of 3 - 3-dose series) Hepatitis B Vaccine (1 of 3 - 3-dose series) [facility] End: 10-09-2025 DBT Breast - bilateral screening MICHELLE SCREENING [facility] Radiology Routine Encounter for screening mammogram for breast cancer 1 Occurrences starting 09/09/2024 until 10/09/2025 [facility] Comment on above: 1 Occurrences starti ng 09/09/2024 until 10/09/2025 MR [facility] Payers Date Payer Category Payer Self-pay [id number] 2019 Private Health Insurance MMO SUP ER[employer] PPO [id number] 2019 Unknown MMO MMO SUPER[employer] PPO [id number] 2019-Present [phone] [address] [place] [address] PPO [id number] 2019 Unknown [id number] 1997 Unknown SELF PAY INSURANCE [id number] Unknown [id number] Unknown [id number] 462 Unknown [id number] 462 Unknown [id number]. 462 Unknown [id number]. 462 Unknown [id number]. 462 Unknown [id number]. 462 Unknown [id number]. 462 Unknown [id number] 462 Unknown [id number] 462 Unknown [id number] 462 Unknown [id number] 462 Social History Date Type Detail Facility Start: 09-03-2021 [facility] Work Phone: Start: 06-24-2020 Spouse/ Signif icant Other [facility] Start: 1970 Sex Assigned At Female A [facility] Start: 09-12-2019 End: 08-22-2024 Tobacco smoking status Never smoked tobacco (finding) [facility] Start: 04-17-2016 End: 07-21-2022 Tobacco use and exposure Smokeless tobacco non-user [facility] Start: 06-24-2022 End: 09-09-2024 Alcohol intake Current drinker of alcohol (finding) [facility] Start: 06-24-2022 Alcohol Comment socially [facility] Start: 1970 Sex Assigned At Not on file C [facility] Start: 07-21-2022 End: 09-09-2022 History of Social function [facility] Start: 07-21-2022 End: 09-09-2022 Tobacco use panel [facility] National Score (1-10 0), lower number is lower risk 58 [facility] Has the [employer], or [employer] threatened to shut off services in your home in past 12Mo No [facility] Are you now , , , , never or living with a partner? [facility] How often to you hav e a drink containing alcohol? Monthly or less [facility] How often do you hav e 6 or more drinks on 1 occasion? Never [facility] Do you feel stress - tense, restless, nervous, or anxious, or unable to sleep at night because your mind is troubled all the time - these days [OSQ] Not at all [facility] (I/We) worried [facility] er (my/our) food would run out before (I/we) got money to buy more. Never true [facility] Goals Date Patient Goal Desired Activity /State Clinical Notes 06-24-2022 to 09-12-2024 Telephone Encounter - Susy Moss MA - 09/12/2024 2:19 PM EDTTelephone Encounter - Susy Moss MA - 09/12/2024 2:19 PM SHELLEYTPMary alejandro APRN.CNP - 09/09/2024 8:00 AM EDT Note Date & Type Note Facility 09-12-2024 Telephone encount er Note Pt notified of results via [employer]. Susy Moss Ma [facility] 09-12-2024 Telephone encount er Note ----- Message from Mary Quinonez APRN.CNP sent at 09/12/2024 7:17 AM EDT ----- Blood work is normal. Mary Quinonez APRN.CNP [facility] 09-12-2024 Miscellaneous Notes Formattin g of this note might be different from the original. Pt notified of results via [employer]. Susy Moss Ma ----- Message from Mary Quinonez APRN.CNP sent at 09/12/2024 7:17 AM EDT ----- Blood work is normal. Mary Quinonez APRN.CNP documented in this encounter [facility] 09-09-2024 History of Presen t illness Narrative 09/09/2024 Patient presents with: Establish Care Recording using Font[employer] software for draft documentation of the visit was discussed with the patient/authorized labor service representative; all questions welcomed and answered. Patient/authorized labor service representative agreed to proceed SUBJECTIVE: This is a 53 year old that is here today for Above Complaints. Menopausal Symptoms: - Experiencing vaginal dryness and hot flashes. - Reports weight gain, previously maintaining around 120 lbs, increased to 128 lbs; currently back to 120 lbs after dietary changes and intermittent fasting. - Sleep disturbances noted, but no significant mood changes reported. - Taking magnesium supplement to alleviate symptoms, with minimal effect. Hemorrhoids: - Chronic hemorrhoids with occasional flare-ups. - Family history of severe hemorrhoids in father, who has undergone two surgeries. - Previous evaluation by a general surgeon recommended fiber intake. Vertigo: - Severe vertigo episode during COVID-19 pandemic, accompanied by earaches and tinnitus. - Evaluated by ENT Dr. Cespedes; hearing test performed. 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 - Symptoms resolved after dietary modifications, no recurrence in the past 1.5 years. Surgical History: - Endometrial ablation performed by Dr. Cowan 12-15 years ago. - Tonsillectomy in first grade. Preventive Care: - Last mammogram approximately three years ago; reports dense breast tissue. - Pap smear completed in 2023. - Uncertain about shingles vaccination status. - No recent basic labs, including cholesterol, performed in the last year. Family History: - Mother, age 79, has lymphoma in remission for 10 years. - Father, age 83, has no significant health issues. - Brother is healthy. - Maternal grandparents both of lung cancer; both were smokers. - Paternal grandparents of old age; specific causes not remembered. Social History: - Non-smoker, no vaping or illicit drug use. - Consumes alcohol socially. - with two children. - Employed in the [employer] office at [address] for 18 years; plans to resign this summer. - Also works in [email or web address]. - Enjoys hiking and Pilates twice a week. Past medical, surgical, family, social hx, medications, allergies and health maintenance reviewed and updated PAST MEDICAL HISTORY Diagnosis Date Benign paroxysmal positional vertigo Hemorrhoids NEGATIVE MEDICAL HISTORY Tinnitus ALLERGIES Seasonal Allergies MEDICATIONS Current Outpatient Medications Medication Sig MAGNESIUM GLYCINATE ORAL Take by mouth. MULTIVITAMIN ORAL Take 1 tablet by mouth twice daily. No current facility-administered medications for this visit. Medications and allergies reviewed by this provider. SOCIAL HISTORY Social History Tobacco Use Smoking status: Never Smokeless tobacco: Never Substance Use Topics Alcohol use: Yes Comment: socially Drug use: No REVIEW OF SYSTEMS GENERAL: No weight loss, malaise or fevers HEENT: Negative for frequent or significant headaches, No changes in hearing or vision, no nose bleeds or other nasal problems NECK: Negative for lumps, goiter, pain and significant neck swelling RESPIRATORY: Negative for cough, hemoptysis, wheezing, COPD, dyspnea or shortness of breath CARDIOVASCULAR: Negative for chest pain, leg swelling, hypertension, CHF or palpitations GI: No nausea, vomiting, or diarrhea : No history of dysuria, frequency or incontinence 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 Seeing chiropractor and PT for low ck pain SKIN: Negative for lesions, rash, and itching PSYCH: Negative for sleep disturbance, mood disorder and recent psychosocial stressors HEMATOLOGY/LYMPHOLOGY: Negative for prolonged bleeding, bruising easily or swollen nodes ENDOCRINE: Negative for cold or heat intolerance, polyuria, polydipsia and goiter NEURO: No history of headaches, syncope, paralysis, seizures or tremors All other reviewed and negative other than HPI. OBJECTIVE: BP 104/64 Pulse 73 Resp 18 Ht 157.4 cm (5' 1.97) Wt 54.6 kg (120 lb 6.4 oz) LMP 08/21/2008 SpO2 98% BMI 22.04 kg/m . Vital signs reviewed by this provider. APPEARANCE Well appearing, alert, in no acute distress, well-hydrated, well nourished. EYES conjunctiva and sclera normal. EARS External ears normal, canals clear NECK Supple, no adenopathy; thyroid symmetric, normal size, no bruits HEART RRR with normal S1 and S2, no murmurs, no gallops, no JVD appreciated LUNG clear to auscultation. No wheezes, rhonchi or rales ABDOMEN bowel sounds normoactive, no bruits, soft, non-tender, non-distended EXTREMITIES Extremities normal, No deformities, No skin discoloration, No edema, and Normal pulses bilaterally. SKIN Skin color, texture, turgor normal, no suspicious rashes or lesions to exposed skin Depression Screening Never done Anxiety Screening Never done DTaP,Tdap,Td Vaccine(1 - Tdap) Never done Hepatitis B Vaccine(1 of 3 - 19+ 3-dose series) Never done Lipid Screening Never done Diabetes Screening Never done Shingrix Vaccine(1 of 2) Never done Pneumococcal Vaccine: 50+(1 of 1 - PCV) Never done Mammogram Screening due on 10/01/2023 Covid-19 Vaccine( - 2023- season) Never done Hepatitis C Screening due on 09/09/2025 HIV Screening due on 09/09/2025 Influenza Vaccine(Season Ended) due on 12/26/2024 Cervical Cancer Screening due on 09/10/2027 Colorectal Cancer Screening due on 07/21/2032 ASSESSMENT/PLAN: 1. Encounter for medical examination to establish care (Z00.00) - Patient previously seen by Dr. Molina at [facility]. - No significant past medical history; reports symptoms consistent with perimenopause, including hot flashes and sleep disturbances. - Family history notable for maternal lymphoma in remission, paternal hemorrhoids, and grandparental lung cancer and hypertension. - No current medications other than a multivitamin and magnesium. - No known allergies. - Physical examination unremarkable. - Discussed symptoms of menopause and management options. - Advised patient to continue current lifestyle modifications, including diet and exercise. - Follow-up in one year or as needed. - Screening for hyperlipidemia (Z13.220) - Ordered lipid panel. - Patient has not eaten today; instructed to proceed to the lab for blood draw. 2. Screening for hyperlipidemia (Z13.220) - Ordered lipid panel. - Patient has not eaten today; instructed to proceed to the lab for blood draw. 3. Encounter for screening mammogram for breast cancer (Z12.31) - Patient overdue for mammogram; last screening approximately three years ago. - Ordered screening mammogram. - Patient has dense breast tissue; discussed the importance of regular screenings. - Advised to schedule and complete mammogram at her earliest convenience. Mary Quinonez APRN.MANAGER UTILITY Prescription instructions reviewed with patient as applicable. Patient advised if symptoms do not improve or if symptoms worsen sooner, to contact their primary care physician. Potential red flag symptoms discussed with the patient. Reviewed appropriate action plan to take if red flag symptoms occur. Patient agreeable to treatment plan. documented in this encounter [facility] 09-09-2024 Note HNO ID: [id number] Author: MARY QUINONEZ APRN.SARAH Service: ? Author Type: Nurse Practitioner Type: Progress Notes Filed: 09/09/2024 09:05 Note Text: 09/09/2024 Patient presents with: Establish Care Recording using Fontself software for draft documentation of the visit was discussed with the patient/authorized labor service representative; all questions welcomed and answered. Patient/authorized labor service representative agreed to proceed SUBJECTIVE: This is a 53 year old that is here today for Above Complaints. Menopausal Symptoms: - Experiencing vaginal dryness and hot flashes. - Reports weight gain, previously maintaining around 120 lbs, increased to 128 lbs; currently back to 120 lbs after dietary changes and intermittent fasting. - Sleep disturbances noted, but no significant mood changes reported. - Taking magnesium supplement to alleviate symptoms, with minimal effect. Hemorrhoids: - Chronic hemorrhoids with occasional flare-ups. - Family history of severe hemorrhoids in father, who has undergone two surgeries. - Previous evaluation by a general surgeon recommended fiber intake. Vertigo: - Severe vertigo episode during COVID-19 pandemic, accompanied by earaches and tinnitus. - Evaluated by ENT Dr. Cespedes; hearing test performed. 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 - Symptoms resolved after dietary modifications, no recurrence in the past 1.5 years. Surgical History: - Endometrial ablation performed by Dr. Cowan 12-15 years ago. - Tonsillectomy in first grade. Preventive Care: - Last mammogram approximately three years ago; reports dense breast tissue. - Pap smear completed in 2022. - Uncertain about shingles vaccination status. - No recent basic labs, including cholesterol, performed in the last year. Family History: - Mother, age 79, has lymphoma in remission for 10 years. - Father, age 83, has no significant health issues. - Brother is healthy. - Maternal grandparents both of lung cancer; both were smokers. - Paternal grandparents of old age; specific causes not remembered. Social History: - Non-smoker, no vaping or illicit drug use. - Consumes alcohol socially. - with two children. - Employed in the [employer] office at [address] for 18 years; plans to resign this summer. 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 - Enjoys hiking and Pilates twice a week. Past medical, surgical, family, social hx, medications, allergies and health maintenance reviewed and updated PAST MEDICAL HISTORY Diagnosis Date Benign paroxysmal positional vertigo Hemorrhoids NEGATIVE MEDICAL HISTORY Tinnitus ALLERGIES Seasonal Allergies MEDICATIONS Current Outpatient Medications Medication Sig MAGNESIUM GLYCINATE ORAL Take by mouth. MULTIVITAMIN ORAL Take 1 tablet by mouth twice daily. No current facility-administered medications for this visit. Medications and allergies reviewed by this provider. SOCIAL HISTORY Social History Tobacco Use Smoking status: Never Smokeless tobacco: Never Substance Use Topics Alcohol use: Yes Comment: socially Drug use: No REVIEW OF SYSTEMS GENERAL: No weight loss, malaise or fevers HEENT: Negative for frequent or significant headaches, No changes in hearing or vision, no nose bleeds or other nasal problems NECK: Negative for lumps, goiter, pain and significant neck swelling RESPIRATORY: Negative for cough, hemoptysis, wheezing, COPD, dyspnea or shortness of breath CARDIOVASCULAR: Negative for chest pain, leg swelling, hypertension, CHF or palpitations GI: No nausea, vomiting, or diarrhea : No history of dysuria, frequency or incontinence 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 Seeing chiropractor and PT for low ck pain SKIN: Negative for lesions, rash, and itching PSYCH: Negative for sleep disturbance, mood disorder and recent psychosocial stressors HEMATOLOGY/LYMPHOLOGY: Negative for prolonged bleeding, bruising easily or swollen nodes ENDOCRINE: Negative for cold or heat intolerance, polyuria, polydipsia and goiter NEURO: No history of headaches, syncope, paralysis, seizures or tremors All other reviewed and negative other than HPI. OBJECTIVE: BP 104/64 Pulse 73 Resp 18 Ht 157.4 cm (5' 1.97) Wt 54.6 kg (120 lb 6.4 oz) LMP 08/21/2008 SpO2 98% BMI 22.04 kg/m? . Vital signs reviewed by this provider. APPEARANCE Well appearing, alert, in no acute distress, well-hydrated, well nourished. EYES conjunctiva and sclera normal. EARS External ears normal, canals clear NECK Supple, no adenopathy; thyroid symmetric, normal size, no bruits HEART RRR with normal S1 and S2, no murmurs, no gallops, no JVD appreciated LUNG clear to auscultation. No wheezes, rhonchi or rales ABDOMEN bowel sounds normoactive, no bruits, soft, non-tender, non-distended EXTREMITIES Extremities normal, No (more content not included)... [facility] 08-22-2024 Evaluation note Diagnosis Onset Date Resolution Segmental and somatic dysfunction of cervical region acute August 22, 2024 2:56pm Segmental and somatic dysfunction of lumbar region acute August 22, 2024 2:56pm Segmental and somatic dysfunction of pelvic region acute August 22, 2024 2:56pm Segmental and somatic dysfunction of thoracic region acute August 22, 2024 2:56pm Segmental and somatic dysfunction of cervical region acute August 30, 2024 2: 30pm Segmental and somatic dysfunction of lumbar region acute August 30, 2024 2: 30pm Segmental and somatic dysfunction of pelvic region acute August 30, 2024 2: 30pm Segmental and somatic dysfunction of thoracic region acute August 30, 2024 2: 30pm Segmental and somatic dysfunction of cervical region acute September 13, 2024 3 :30pm Segmental and somatic dysfunction of lumbar region acute September 13, 2024 3 :30pm Segmental and somatic dysfunction of pelvic region acute September 13, 2024 3 :30pm Segmental and somatic dysfunction of thoracic region acute September 13, 2024 3 :30pm [employer] Work Phone: 1(986) 139-245804-28-2025 Evaluation note* Diagnosis Onset Date Resolution Status Admit Date Segmental and somatic dysfunction of cervical region acute A pril 2024 2:56pm Segmental and somatic dysfunction of lumbar region acute Apr il 2024 2:56pm Segmental and somatic dysfunction of pelvic region acute Apr il 2024 2:56pm Segmental and somatic dysfunction of thoracic region acute A pril 2024 2:56pm Segmental and somatic dysfunction of cervical region acute M ay 2024 2:30pm Segmental and somatic dysfunction of lumbar region acute August 30, 2024 2:30pm Segmental and somatic dysfunction of pelvic region acute August 30, 2024 2:30pm Segmental and somatic dysfunction of thoracic region acute M ay 2024 2:30pm Segmental and somatic dysfunction of lumbar region acute September 13, 2024 3:30pm Segmental and somatic dysfunction of pelvic region acute September 13, 2024 3:30pm Segmental and somatic dysfunction of thoracic region acute M ay 2024 3:30pm Back pain chronic September 13, 2024 3:30pm Segmental and somatic dysfunction of cervical region acute J une 2024 8:28am Segmental and somatic dysfunction of lumbar region acute Oleg e 2024 8:28am Segmental and somatic dysfunction of pelvic region acute Oleg e 2024 8:28am Segmental and somatic dysfunction of thoracic region acute J une 2024 8:28am [facility] Work Phone: [phone]) 347-313704-28-2025 Evaluation note* Diagnosis Onset Date Resolution Status Admit Date Segmental and somatic dysfunction of cervical region acute A pril 2024 2:56pm Segmental and somatic dysfunction of lumbar region acute Apr il 2024 2:56pm Segmental and somatic dysfunction of pelvic region acute Apr il 2024 2:56pm Segmental and somatic dysfunction of thoracic region acute A pril 2024 2:56pm Segmental and somatic dysfunction of cervical region acute M ay 2024 2:30pm Segmental and somatic dysfunction of lumbar region acute August 30, 2024 2:30pm Segmental and somatic dysfunction of pelvic region acute August 30, 2024 2:30pm Segmental and somatic dysfunction of thoracic region acute M ay 2024 2:30pm Segmental and somatic dysfunction of lumbar region acute September 13, 2024 3:30pm Segmental and somatic dysfunction of pelvic region acute September 13, 2024 3:30pm Segmental and somatic dysfunction of thoracic region acute M ay 2024 3:30pm Back pain chronic September 13, 2024 3:30pm Segmental and somatic dysfunction of lumbar region acute Sep 8:28am Segmental and somatic dysfunction of pelvic region acute Oleg 2024 8:28am Back pain chronic September 28, 2024 8:28am Segmental and somatic dysfunction of cervical region acute J une 2024 2:06pm Segmental and somatic dysfunction of lumbar region acute Oleg e 2024 2:06pm Segmental and somatic dysfunction of pelvic region acute Oleg e 2024 2:06pm Segmental and somatic dysfunction of thoracic region acute J une 2024 2:06pm [facility] Work Phone: [phone] Nurse Note* Deloris Benavides RN - 07/21/2022 12:40 PM EDT Pt received in PACU. Pt moderately drowsy, but arouses easily. Denies pain or nausea. Abd soft and non distended. Deloris Benavides RN [facility] History and physical note * Carla Briones MD - 07/21/2022 12:00 PM EDT UPDATED PROCEDURAL SEDATION HISTORY AND PHYSICAL EXAMINATION SERVICE DATE: 07/21/2022 SERVICE TIME: 11:59 PHYSICAL EXAM MUST BE COMPLETED ON ADMISSION PROCEDURE: colonoscopy, possible biopsies Procedure Indications: screening for colon cancer The History and Physical (completed in the past 30 days) has been reviewed and the patient has beenexamined. The contents accurately reflect the patient's condition with the following additions or revisions since the H&P was completed. ASA Class: ASA Class:: Normal healthy patient Examination indicates no changes. AIRWAY: Airway Visualization of Uvula: Yes Mouth opening greater than 2 fingerbreadths: Yes Neck Full Range of Motion: Yes LUNGS: Lungs clear to auscultation CARDIAC: Regular rhythm,Regular rate Provisional Diagnosis/Treatment Plan: colonoscopy, possible biopsies SEDATION GOAL: Moderate This H&P can be found in the Electronic Medical Record. SIGNATURE: Carla Briones MD PATIENT NAME: Aria Russell DATE: July 21, 2022 TIME: 12:08 PM Source Note - Carla Briones MD - 07/21/2022 12:00 PM EDT HISTORY AND PHYSICAL Aria Russell 1970 REFERRING PHYSICIAN: Lily Segura DO CHIEF COMPLAINT: Consult (colonoscopy) HPI: The patient is a 51 year old female referred for endoscopy. Aria notes no colon complaints. Patient denies any change in bowel habits, weight changes, blood in stools, black tarry stools or abdominal pain. Denies family history of colon issues. NOTES history of hemorrhoids x year, recently with some more symptoms of these prolapsing and becoming bothersome. The patient notes no upper GI complaints. Aria has not undergone prior endoscopy. Denies chest pain, shortness of breath or recent hospitalizations. Denies problems with sedation inthe past. PAST MEDICAL HISTORY PAST MEDICAL HISTORY Diagnosis Date NEGATIVE MEDICAL HISTORY PAST SURGICAL HISTORY PAST SURGICAL HISTORY [facility] CURRENT MEDICATIONS Current Outpatient Medications Medication Sig MULTIVITAMIN ORAL Take 1 tablet by mouth twice daily. No current facility-administered medications for this visit. ALLERGIES: Patient has no known allergies. PERSONAL HISTORY: SOCIAL HISTORY Social History Tobacco Use Smoking status: Never Smokeless tobacco: Never Vaping Use Vaping Use: Never used Substance Use Topics Alcohol use: Yes Comment: socially Drug use: No FAMILY HISTORY: FAMILY HISTORY FAMILY HISTORY Problem Relation Age of Onset Heart Maternal Grandmother hypertension, [place] Cancer Maternal Grandfather lung REVIEW OF SYMPTOMS: The review of systems data was entered by the nurse and reviewed by la Nursing Notes: Shayla Cowan LPN 06/24/2022 1:12 PM Signed REVIEW OF SYSTEMS: General: The patient denies fatigue, denies weight loss, denies weight gain, denies feeling hot, and denies feelings of cold. Eyes: The patient denies glaucoma, denies eye injury/surgery, does not wear glasses or contacts. Ear/Nose/Throat: The patient NOTES allergies, denies hayfever, denies ear infections, and denies bloody noses. Cardiovascular: The patient denies chest pain, denies heart disease, denies high blood pressure,denies cardiac stent, denies prior heart attack, denies irregular heart beat, denies high cholesterol, denies poor circulation, denies heart failure, other cardiac issues, denies claudication, denies cold feet, denies peripheral arterial stent. Respiratory: The patient denies tuberculosis, denies pneumonia, denies frequent cough, denies pulmonary embolism, denies shortness of breath, and denies coughing up blood. Gastrointestinal: The patient denies difficulty swallowing, denies acid reflux, denies ulcers, denies vomiting, denies jaundice/hepatitis, denies gallbladder problems, denies black or tarry stools, NOTES hemorrhoids, denies bleeding from rectum, denies diverticulitis, NOTES constipation, denies diarrhea, denies loss of stool control, and denies hernias. Kidney/Bladder: The patient denies kidney stones, denies urine infections, and denies bloody urine. Skin: The patient denies a history of skin cancer, denies bleeding/changing moles, and denies a history of skin rash. Neurologic: The patient denies a history of epilepsy/convulsions, denies headaches, denies head/spinal injuries, and denies stroke/TIA. Psychiatric: The patient denies psychiatric medications, denies depression, and denies voices, denies substance abuse. Endocrine: The patient denies thyroid disorders, denies diabetes, and denies hormonal problems. Hematologic: The patient denies a history of bruising, denies bleeding, and denies anemia, denies blood clots. Infections: The patient denies a history of measles and mumps, denies rheumatic fever, and denies sexually transmitted diseases. Musculoskeletal: The patient denies back pain/injury, denies back problems, denies sciatica, deniesknee/foot trouble, denies arthritis, or denies gout. When was patient's last Mammogram screening? 2019 Last Colonoscopy: N/A Shayla Cowan LPN I have confirmed and edited as necessary, the PFSH and ROS obtained by others. Libra Portillo PA-C PHYSICAL EXAMINATION: General: The patient is 51 year old female, well nourished, well hydrated in no acute distress. Thepatient is oriented to time, place, and person. VITALS: Blood pressure 108/76, pulse 93, temperature 36.4 C (97.6 F), height 157.5 cm (5' 2), weight 56.3 kg (124 lb 3.2 oz), last menstrual period 08/21/2008, SpO2 100 %. Body mass index is 22.72 kg/m . HEENT: Normal cephalic, ataumatic, pupils are equally round, sclera are anicteric, mucous membranesare moist, oropharynx is clear. Neck has no masses, asymmetry or lymphadenopathy. Respiratory: Clear to auscultation and percussion. Normal respiratory excursion and pattern. Cardiac: Examination is regular rate and rhythm. Normal S1/S2 Abdominal exam: Soft, nontender, with no palpable masses. No hepatosplenomegaly. No palpable hernias. Extremities: no clubbing, cyanosis or edema. No adenopathy. LABORATORY VALUES: As Noted RADIOLOGIC STUDIES: As Noted Assessment IMPRESSION: encounter for screening colonoscopy. History of internal hemorrhoids, symptomatic-plan for further exam and recommendations by surgeon at time of colonoscopy to see if patient may be candidate for banding procedure PLAN: I have reviewed my findings with the surgeon. Will plan for lower endoscopy. We discussed therisks and benefits of the planned endoscopy. I have informed the patient that complications can occur including failure to complete the endoscopy and perforation. The patient had the opportunity to ask questions concerning the planned endoscopy. My staff has also explained the procedure to the patient in understandable terms and has given the patient printed material concerning the procedure. Thepatient freely consents to surgery. The patient was offered a surgery/procedure at a [facility] facility. I have counseled the patient regarding the risk of exposure to and/or potential harm posed by the COVID-19 virus with having a surgery/procedure at this time versus the risk of delaying the surgery/procedure. It is not possible to know either the risk of delaying the surgery or procedure or chance of getting an infection with perfect accuracy, but a joint decision was made between the patient and myself to proceed at this time with endoscopy. I plan to use Golytely bowel preparation I have explained to the patient the difference between IV conscious sedation and MAC anesthesia - and I have offered either, according to the patient's wishes. I have explained that with IV conscioussedation there is no anesthesia provider available and therefore there is a limitation of the amount of IV medications that can be given and that the patient may wake up in the middle of the procedure and/or experience pain/discomfort during the procedure. Further discussion was done and the patient was given the opportunity to ask questions and all questions were answered. The patient chooses IVconscious sedation Diagnoses: (Z12.11) Encounter for screening for malignant neoplasm of colon (primary encounter diagnosis) (Z87.19) History of hemorrhoids Consultation requested by Dr. Segura for an opinion regarding screening colonoscopy and hemorrhoids. My final recommendations will be communicated back to the requesting physician by way of shared Medical record or letter to requesting physician via US mail. Libra Portillo PA-C * Carla Briones MD - 07/21/2022 12:00 PM EDT HISTORY AND PHYSICAL Aria Russell 1970 REFERRING PHYSICIAN: Lily Segura DO CHIEF COMPLAINT: Consult (colonoscopy) HPI: The patient is a 51 year old female referred for endoscopy. Aria notes no colon complaints. Patient denies any change in bowel habits, weight changes, blood in stools, black tarry stools or abdominal pain. Denies family history of colon issues. NOTES history of hemorrhoids x year, recently with some more symptoms of these prolapsing and becoming bothersome. The patient notes no upper GI complaints. Aria has not undergone prior endoscopy. Denies chest pain, shortness of breath or recent hospitalizations. Denies problems with sedation inthe past. PAST MEDICAL HISTORY PAST MEDICAL HISTORY Diagnosis Date NEGATIVE MEDICAL HISTORY PAST SURGICAL HISTORY PAST SURGICAL HISTORY Procedure Laterality Date [facility] 09/05/2008 CURRENT MEDICATIONS Current Outpatient Medications Medication Sig MULTIVITAMIN ORAL Take 1 tablet by mouth twice daily. No current facility-administered medications for this visit. ALLERGIES: Patient has no known allergies. PERSONAL HISTORY: SOCIAL HISTORY Social History Tobacco Use Smoking status: Never Smokeless tobacco: Never Vaping Use Vaping Use: Never used Substance Use Topics Alcohol use: Yes Comment: socially Drug use: No FAMILY HISTORY: FAMILY HISTORY FAMILY HISTORY Problem Relation Age of Onset Heart Maternal Grandmother hypertension, [place] Cancer Maternal Grandfather lung REVIEW OF SYMPTOMS: The review of systems data was entered by the nurse and reviewed by la Nursing Notes: Shayla CowanJOCY 06/24/2022 1:12 PM Signed REVIEW OF SYSTEMS: General: The patient denies fatigue, denies weight loss, denies weight gain, denies feeling hot, and denies feelings of cold. Eyes: The patient denies glaucoma, denies eye injury/surgery, does not wear glasses or contacts. Ear/Nose/Throat: The patient NOTES allergies, denies hayfever, denies ear infections, and denies bloody noses. Cardiovascular: The patient denies chest pain, denies heart disease, denies high blood pressure,denies cardiac stent, denies prior heart attack, denies irregular heart beat, denies high cholesterol, denies poor circulation, denies heart failure, other cardiac issues, denies claudication, denies cold feet, denies peripheral arterial stent. Respiratory: The patient denies tuberculosis, denies pneumonia, denies frequent cough, denies pulmonary embolism, denies shortness of breath, and denies coughing up blood. Gastrointestinal: The patient denies difficulty swallowing, denies acid reflux, denies ulcers, denies vomiting, denies jaundice/hepatitis, denies gallbladder problems, denies black or tarry stools, NOTES hemorrhoids, denies bleeding from rectum, denies diverticulitis, NOTES constipation, denies diarrhea, denies loss of stool control, and denies hernias. Kidney/Bladder: The patient denies kidney stones, denies urine infections, and denies bloody urine. Skin: The patient denies a history of skin cancer, denies bleeding/changing moles, and denies a history of skin rash. Neurologic: The patient denies a history of epilepsy/convulsions, denies headaches, denies head/spinal injuries, and denies stroke/TIA. Psychiatric: The patient denies psychiatric medications, denies depression, and denies voices, denies substance abuse. Endocrine: The patient denies thyroid disorders, denies diabetes, and denies hormonal problems. Hematologic: The patient denies a history of bruising, denies bleeding, and denies anemia, denies blood clots. Infections: The patient denies a history of measles and mumps, denies rheumatic fever, and denies sexually transmitted diseases. Musculoskeletal: The patient denies back pain/injury, denies back problems, denies sciatica, deniesknee/foot trouble, denies arthritis, or denies gout. When was patient's last Mammogram screening? 2019 Last Colonoscopy: N/A Shayla Cowan LPN I have confirmed and edited as necessary, the PFSH and ROS obtained by others. Libra Portillo PA-C PHYSICAL EXAMINATION: General: The patient is 51 year old female, well nourished, well hydrated in no acute distress. Thepatient is oriented to time, place, and person. VITALS: Blood pressure 108/76, pulse 93, temperature 36.4 C (97.6 F), height 157.5 cm (5' 2), weight 56.3 kg (124 lb 3.2 oz), last menstrual period 08/21/2008, SpO2 100 %. Body mass index is 22.72 kg/m . HEENT: Normal cephalic, ataumatic, pupils are equally round, sclera are anicteric, mucous membranesare moist, oropharynx is clear. Neck has no masses, asymmetry or lymphadenopathy. Respiratory: Clear to auscultation and percussion. Normal respiratory excursion and pattern. Cardiac: Examination is regular rate and rhythm. Normal S1/S2 Abdominal exam: Soft, nontender, with no palpable masses. No hepatosplenomegaly. No palpable hernias. Extremities: no clubbing, cyanosis or edema. No adenopathy. LABORATORY VALUES: As Noted RADIOLOGIC STUDIES: As Noted Assessment IMPRESSION: encounter for screening colonoscopy. History of internal hemorrhoids, symptomatic-plan for further exam and recommendations by surgeon at time of colonoscopy to see if patient may be candidate for banding procedure PLAN: I have reviewed my findings with the surgeon. Will plan for lower endoscopy. We discussed therisks and benefits of the planned endoscopy. I have informed the patient that complications can occur including failure to complete the endoscopy and perforation. The patient had the opportunity to ask questions concerning the planned endoscopy. My staff has also explained the procedure to the patient in understandable terms and has given the patient printed material concerning the procedure. Thepatient freely consents to surgery. The patient was offered a surgery/procedure at a [facility] facility. I have counseled the patient regarding the risk of exposure to and/or potential harm posed by the COVID-19 virus with having a surgery/procedure at this time versus the risk of delaying the surgery/procedure. It is not possible to know either the risk of delaying the surgery or procedure or chance of getting an infection with perfect accuracy, but a joint decision was made between the patient and myself to proceed at this time with endoscopy. I plan to use Golytely bowel preparation I have explained to the patient the difference between IV conscious sedation and MAC anesthesia - and I have offered either, according to the patient's wishes. I have explained that with IV conscioussedation there is no anesthesia provider available and therefore there is a limitation of the amount of IV medications that can be given and that the patient may wake up in the middle of the procedure and/or experience pain/discomfort during the procedure. Further discussion was done and the patient was given the opportunity to ask questions and all questions were answered. The patient chooses IVconscious sedation Diagnoses: (Z12.11) Encounter for screening for malignant neoplasm of colon (primary encounter diagnosis) (Z87.19) History of hemorrhoids Consultation requested by Dr. Segura for an opinion regarding screening colonoscopy and hemorrhoids. My final recommendations will be communicated back to the requesting physician by way of shared Medical record or letter to requesting physician via US mail. Libra Portillo PA-C [facility] History of Present illness Narrative* Libra Portillo PA-C - 06/24/2022 1:18 PM EST HISTORY AND PHYSICAL Aria Russell 1970 REFERRING PHYSICIAN: Lily Segura DO CHIEF COMPLAINT: Consult (colonoscopy) HPI: The patient is a 51 year old female referred for endoscopy. Aria notes no colon complaints. Patient denies any change in bowel habits, weight changes, blood in stools, black tarry stools or abdominal pain. Denies family history of colon issues. NOTES history of hemorrhoids x year, recently with some more symptoms of these prolapsing and becoming bothersome. The patient notes no upper GI complaints. Aria has not undergone prior endoscopy. Denies chest pain, shortness of breath or recent hospitalizations. Denies problems with sedation inthe past. PAST MEDICAL HISTORY Diagnosis Date NEGATIVE MEDICAL HISTORY PAST SURGICAL HISTORY Procedure Laterality Date NOVCHANEL 09/05/2008 Current Outpatient Medications Medication Sig MULTIVITAMIN ORAL Take 1 tablet by mouth twice daily. No current facility-administered medications for this visit. ALLERGIES: Patient has no known allergies. PERSONAL HISTORY: Social History Tobacco Use Smoking status: Never Smokeless tobacco: Never Vaping Use Vaping Use: Never used Substance Use Topics Alcohol use: Yes Comment: socially Drug use: No FAMILY HISTORY: FAMILY HISTORY Problem Relation Age of Onset Heart Maternal Grandmother hypertension, [place] Cancer Maternal Grandfather lung REVIEW OF SYMPTOMS: The review of systems data was entered by the nurse and reviewed by la Nursing Notes: Shayla Cowan LPN 06/24/2022 1:12 PM Signed REVIEW OF SYSTEMS: General: The patient denies fatigue, denies weight loss, denies weight gain, denies feeling hot, and denies feelings of cold. Eyes: The patient denies glaucoma, denies eye injury/surgery, does not wear glasses or contacts. Ear/Nose/Throat: The patient NOTES allergies, denies hayfever, denies ear infections, and denies bloody noses. Cardiovascular: The patient denies chest pain, denies heart disease, denies high blood pressure,denies cardiac stent, denies prior heart attack, denies irregular heart beat, denies high cholesterol, denies poor circulation, denies heart failure, other cardiac issues, denies claudication, denies cold feet, denies peripheral arterial stent. Respiratory: The patient denies tuberculosis, denies pneumonia, denies frequent cough, denies pulmonary embolism, denies shortness of breath, and denies coughing up blood. Gastrointestinal: The patient denies difficulty swallowing, denies acid reflux, denies ulcers, denies vomiting, denies jaundice/hepatitis, denies gallbladder problems, denies black or tarry stools, NOTES hemorrhoids, denies bleeding from rectum, denies diverticulitis, NOTES constipation, denies diarrhea, denies loss of stool control, and denies hernias. Kidney/Bladder: The patient denies kidney stones, denies urine infections, and denies bloody urine. Skin: The patient denies a history of skin cancer, denies bleeding/changing moles, and denies a history of skin rash. Neurologic: The patient denies a history of epilepsy/convulsions, denies headaches, denies head/spinal injuries, and denies stroke/TIA. Psychiatric: The patient denies psychiatric medications, denies depression, and denies voices, denies substance abuse. Endocrine: The patient denies thyroid disorders, denies diabetes, and denies hormonal problems. Hematologic: The patient denies a history of bruising, denies bleeding, and denies anemia, denies blood clots. Infections: The patient denies a history of measles and mumps, denies rheumatic fever, and denies sexually transmitted diseases. Musculoskeletal: The patient denies back pain/injury, denies back problems, denies sciatica, deniesknee/foot trouble, denies arthritis, or denies gout. When was patient's last Mammogram screening? 2019 Last Colonoscopy: N/A Shayla Cowan LPN I have confirmed and edited as necessary, the PFSH and ROS obtained by others. Libra Portillo PA-C PHYSICAL EXAMINATION: General: The patient is 51 year old female, well nourished, well hydrated in no acute distress. Thepatient is oriented to time, place, and person. VITALS: Blood pressure 108/76, pulse 93, temperature 36.4 C (97.6 F), height 157.5 cm (5' 2), weight 56.3 kg (124 lb 3.2 oz), last menstrual period 08/21/2008, SpO2 100 %. Body mass index is 22.72 kg/m . HEENT: Normal cephalic, ataumatic, pupils are equally round, sclera are anicteric, mucous membranesare moist, oropharynx is clear. Neck has no masses, asymmetry or lymphadenopathy. Respiratory: Clear to auscultation and percussion. Normal respiratory excursion and pattern. Cardiac: Examination is regular rate and rhythm. Normal S1/S2 Abdominal exam: Soft, nontender, with no palpable masses. No hepatosplenomegaly. No palpable hernias. Extremities: no clubbing, cyanosis or edema. No adenopathy. LABORATORY VALUES: As Noted RADIOLOGIC STUDIES: As Noted Assessment IMPRESSION: encounter for screening colonoscopy. History of internal hemorrhoids, symptomatic-plan for further exam and recommendations by surgeon at time of colonoscopy to see if patient may be candidate for banding procedure PLAN: I have reviewed my findings with the surgeon. Will plan for lower endoscopy. We discussed therisks and benefits of the planned endoscopy. I have informed the patient that complications can occur including failure to complete the endoscopy and perforation. The patient had the opportunity to ask questions concerning the planned endoscopy. My staff has also explained the procedure to the patient in understandable terms and has given the patient printed material concerning the procedure. Thepatient freely consents to surgery. The patient was offered a surgery/procedure at a [facility] facility. I have counseled the patient regarding the risk of exposure to and/or potential harm posed by the COVID-19 virus with having a surgery/procedure at this time versus the risk of delaying the surgery/procedure. It is not possible to know either the risk of delaying the surgery or procedure or chance of getting an infection with perfect accuracy, but a joint decision was made between the patient and myself to proceed at this time with endoscopy. I plan to use Golytely bowel preparation I have explained to the patient the difference between IV conscious sedation and MAC anesthesia - and I have offered either, according to the patient's wishes. I have explained that with IV conscioussedation there is no anesthesia provider available and therefore there is a limitation of the amount of IV medications that can be given and that the patient may wake up in the middle of the procedure and/or experience pain/discomfort during the procedure. Further discussion was done and the patient was given the opportunity to ask questions and all questions were answered. The patient chooses IVconscious sedation Diagnoses: (Z12.11) Encounter for screening for malignant neoplasm of colon (primary encounter diagnosis) (Z87.19) History of hemorrhoids Consultation requested by Dr. Segura for an opinion regarding screening colonoscopy and hemorrhoids. My final recommendations will be communicated back to the requesting physician by way of shared Medical record or letter to requesting physician via US mail. Libra Portlilo PA-C documented [facility] Nurse Note* Shayla Cowan LPN - 06/24/2022 1:07 PM EST REVIEW OF SYSTEMS: General: The patient denies fatigue, denies weight loss, denies weight gain, denies feeling hot, and denies feelings of cold. Eyes: The patient denies glaucoma, denies eye injury/surgery, does not wear glasses or contacts. Ear/Nose/Throat: The patient NOTES allergies, denies hayfever, denies ear infections, and denies bloody noses. Cardiovascular: The patient denies chest pain, denies heart disease, denies high blood pressure,denies cardiac stent, denies prior heart attack, denies irregular heart beat, denies high cholesterol, denies poor circulation, denies heart failure, other cardiac issues, denies claudication, denies cold feet, denies peripheral arterial stent. Respiratory: The patient denies tuberculosis, denies pneumonia, denies frequent cough, denies pulmonary embolism, denies shortness of breath, and denies coughing up blood. Gastrointestinal: The patient denies difficulty swallowing, denies acid reflux, denies ulcers, denies vomiting, denies jaundice/hepatitis, denies gallbladder problems, denies black or tarry stools, NOTES hemorrhoids, denies bleeding from rectum, denies diverticulitis, NOTES constipation, denies diarrhea, denies loss of stool control, and denies hernias. Kidney/Bladder: The patient denies kidney stones, denies urine infections, and denies bloody urine. Skin: The patient denies a history of skin cancer, denies bleeding/changing moles, and denies a history of skin rash. Neurologic: The patient denies a history of epilepsy/convulsions, denies headaches, denies head/spinal injuries, and denies stroke/TIA. Psychiatric: The patient denies psychiatric medications, denies depression, and denies voices, denies substance abuse. Endocrine: The patient denies thyroid disorders, denies diabetes, and denies hormonal problems. Hematologic: The patient denies a history of bruising, denies bleeding, and denies anemia, denies blood clots. Infections: The patient denies a history of measles and mumps, denies rheumatic fever, and denies sexually transmitted diseases. Musculoskeletal: The patient denies back pain/injury, denies back problems, denies sciatica, deniesknee/foot trouble, denies arthritis, or denies gout. When was patient's last Mammogram screening? 2019 Last Colonoscopy: N/A Shayla Cowan LPN [facility] Future Appointments Appointment Date:12/23/2021 10:30:00 AM Scheduled Provider: Location:[facility] Appointment Type:MRI Shoulder w/o Contrast Right Future Scheduled Tests Radiology* MRI Shoulder w/o Contrast Right 12/23/21 [facility] Evaluation note* Diagnosis Onset Date Resolution Status Back pain acute Segmental and somatic dysfunction of cervical region acute Segmental and somatic dysfunction of lumbar region acute Segmental and somatic dysfunction of thoracic region acute [facility] Work Phone: Evaluation note* Diagnosis Encounter for screening for malignant neoplasm of colon- Primary Special screening for malignant neoplasms, colon History of hemorrhoids Personal history of other specified diseases documented [facility]* Diagnosis Screening for colon cancer- Primary Special screening for malignant neoplasms, colon Special screening for malignant neoplasms, colon documented in this [facility] note* Diagnosis Encounter for medical examination to establish care- Primary Screening for hyperlipidemia Screening for lipoid disorders Encounter for screening mammogram for breast cancer documented in this encounter [facility] course Narrative No data available for this section [facility] Hospital Discharge instructions No data available for this section [facility] Progress note No data available for this section [facility] Reason for referral (narrative)* Outpatient Procedure (Routine) - Closed Specialty Diagnoses / Procedures Referred By Harry t Referred To Contact [facility] Diagnoses Special screening for malignant neoplasms, colon Procedures COLONOSCOPY SCREENING COLONOSCOPY FLX DX W/COLLJ SPEC WHEN PFRMD Libra Portillo PA-C [address] [address] [facility] [address] [place] [address] Referral ID Status Reason Start Date Expiration Date V isits Requested Visits Authorized [id number] Closed Auto-Generate d Referral 06/24/2022 06/24/2023 1 [facility]No reason for referral information availableFranc[facility] Work Phone: Reason for visit Narrative* Outpatient Procedure (Routine) - Closed Specialty Diagnoses / Procedures Referred By Contac t Referred To Contact [facility] Diagnoses Special screening for malignant neoplasms, colon Procedures COLONOSCOPY SCREENING COLONOSCOPY FLX DX W/COLLJ SPEC WHEN PFRMD Libra Portillo PA-C [address] [place] [address] [facility] [address] [place] [address] Referral ID Status Reason Start Date Expiration Date V isits Requested Visits Authorized [id number] Closed Auto-Generate d Referral 06/24/2022 06/24/2023 1 1 [facility] Chief Complaint and Reason for Visit Chief Complaint ADJUSTMENT RT ARM PAIN. RX HERE Reason for Visit Back pain Segmental and somatic dysfunction of cervical region Segmental and somatic dysfunction of lumbar region Segmental and somatic dysfunction of thoracic region Chief Complaint Admit Date BACK PAIN August 22, 2024 2:5 6pm XRAY August 22, 2024 3:3 5pm Back pain August 30, 2024 2:30pm ACUPUNCTURE September 13, 2024 3:30p m Reason for Visit Admit Date Segmental and somatic dysfunction of cer vical region August 22, 2024 2:56pm Segmental and somatic dysfunction of lum bar region August 22, 2024 2:56pm Segmental and somatic dysfunction of pel krishan region August 22, 2024 2:56pm Segmental and somatic dysfunction of tho racic region August 22, 2024 2:56pm Segmental and somatic dysfunction of cer vical region August 30, 2024 2:30pm Segmental and somatic dysfunction of lum bar region August 30, 2024 2:30pm Segmental and somatic dysfunction of pel krishan region August 30, 2024 2:30pm Segmental and somatic dysfunction of tho racic region August 30, 2024 2:30pm Segmental and somatic dysfunction of cer vical region September 13, 2024 3:30pm Segmental and somatic dysfunction of lum bar region September 13, 2024 3:30pm Segmental and somatic dysfunction of pel krishan region September 13, 2024 3:30pm Segmental and somatic dysfunction of tho racic region September 13, 2024 3:30pm Chief Complaint Admit Date BACK PAIN August 22, 2024 2:5 6pm XRAY August 22, 2024 3:3 5pm Back pain August 30, 2024 2:30pm ACUPUNCTURE September 13, 2024 3:30p m ACUPUNCTURE/ADJUSTMENT September 28, 2024 8: 28am Reason for Visit Admit Date Segmental and somatic dysfunction of cer vical region August 22, 2024 2:56pm Segmental and somatic dysfunction of lum bar region August 22, 2024 2:56pm Segmental and somatic dysfunction of pel krishan region August 22, 2024 2:56pm Segmental and somatic dysfunction of tho racic region August 22, 2024 2:56pm Segmental and somatic dysfunction of cer vical region August 30, 2024 2:30pm Segmental and somatic dysfunction of lum bar region August 30, 2024 2:30pm Segmental and somatic dysfunction of pel krishan region August 30, 2024 2:30pm Segmental and somatic dysfunction of tho racic region August 30, 2024 2:30pm Segmental and somatic dysfunction of lum bar region September 13, 2024 3:30pm Segmental and somatic dysfunction of pel krishan region September 13, 2024 3:30pm Segmental and somatic dysfunction of tho racic region September 13, 2024 3:30pm Back pain September 13, 2024 3:30p m Segmental and somatic dysfunction of cer vical region September 28, 2024 8:28am Segmental and somatic dysfunction of lum bar region September 28, 2024 8:28am Segmental and somatic dysfunction of pel krishan region September 28, 2024 8:28am Segmental and somatic dysfunction of tho racic region September 28, 2024 8:28am Chief Complaint Admit Date BACK PAIN August 22, 2024 2:5 6pm XRAY August 22, 2024 3:3 5pm Back pain August 30, 2024 2:30pm ACUPUNCTURE September 13, 2024 3:30p m ACUPUNCTURE/ADJUSTMENT September 28, 2024 8: 28am ACUPUNCTURE/ADJUSTMENT October 13, 2024 2 :06pm Reason for Visit Admit Date Segmental and somatic dysfunction of cer vical region August 22, 2024 2:56pm Segmental and somatic dysfunction of lum bar region August 22, 2024 2:56pm Segmental and somatic dysfunction of pel krishan region August 22, 2024 2:56pm Segmental and somatic dysfunction of tho racic region August 22, 2024 2:56pm Segmental and somatic dysfunction of cer vical region August 30, 2024 2:30pm Segmental and somatic dysfunction of lum bar region August 30, 2024 2:30pm Segmental and somatic dysfunction of pel krishan region August 30, 2024 2:30pm Segmental and somatic dysfunction of tho racic region August 30, 2024 2:30pm Segmental and somatic dysfunction of lum bar region September 13, 2024 3:30pm Segmental and somatic dysfunction of pel krishan region September 13, 2024 3:30pm Segmental and somatic dysfunction of tho racic region September 13, 2024 3:30pm Back pain September 13, 2024 3:30p m Segmental and somatic dysfunction of lum bar region September 28, 2024 8:28am Segmental and somatic dysfunction of pel krishan region September 28, 2024 8:28am Back pain September 28, 2024 8:28a m Segmental and somatic dysfunction of cer vical region October 13, 2024 2:06pm Segmental and somatic dysfunction of lum bar region October 13, 2024 2:06pm Segmental and somatic dysfunction of pel krishan region October 13, 2024 2:06pm Segmental and somatic dysfunction of tho racic region October 13, 2024 2:06pm Advance Directives Advance Directive Response Recorded Date/ Time Living Will No June 24, 2 021 9:07am Power of Certified Indoor Environmentalist No June 24, 2020 9:07am Summary Purpose Family History No Family History Records FoundNo Family History Records FoundNo Family History Records Found Medications Administered Section Inactive Administered Medications - up to 3 most recent administrations Medication Order MAR Action Action Date Dose Rate Site diphenhydrAMINE 12.5-50 mg injection (BENADRYL) 12.5-50 mg, INTRAVENOUS, DIRECTED, Starting on Thu07/21/22 at 1230, Until Thu07/21/22 at 1629, DOSING DIRECTED BY PHYSICIAN FOR PROCEDURAL SEDATION ONLY, Intraprocedure Given 07/21/2022 12:08 PM EDT 50 mg fentaNYL 50 mcg/mL 25-100 mcg injection (SUBLIMAZE) 25-100 mcg, INTRAVENOUS, DIRECTED, Starting on Thu07/21/22 at 1230, Until Thu07/21/22 at 1629, DOSING DIRECTED BY PHYSICIAN FOR PROCEDURAL SEDATION ONLY, Intraprocedure Given 07/21/2022 12:22 PM EDT 50 mcg Given 07/21/2022 12:06 PM EDT 50 mcg lactated ringers iv infusion 75 mL/hr, INTRAVENOUS, CONTINUOUS, Starting on Thu07/21/22 at 1130, Until Thu07/21/22 at 1240, Preprocedure New Bag/Syringe/Bottle 07/21/2022 11:40 AM EDT 75 mL/hr 75 mL/hr midazolam 1-5 mg injection (VERSED) 1-5 mg, INTRAVENOUS, DIRECTED, Starting on Thu07/21/22 at 1230, Until Thu07/21/22 at 1629, DOSING DIRECTED BY PHYSICIAN FOR PROCEDURAL SEDATION ONLY, Intraprocedure Given 07/21/2022 12:15 PM EDT 2 mg Given 07/21/2022 12:10 PM EDT 2 mg Given 07/21/2022 12:06 PM EDT 3 mg Additional Source Comments Care Team (unrecognized sect ion and content) Care Team Personnel Name: CELSA CASTAÑEDA APRN-MANAGER UTILITY Position: P4 Advanced Practice Nurse Member Role: Primary Care Physician Address: Address: [address] [place] [address] Care Team Related Persons Name: ZURDO RUSSELL INFORMATION SOURCE (unrecogn ized section and content) DATE CREATED AUTHOR 01/01/2022 [facility] DATE CREATED AUTHOR AUTHOR'S ORGANIZ ATION 09/14/2024 [facility] DATE CREATED AUTHOR AUTHOR'S ORGANIZ ATION 10/04/2024 [facility] Source Comments (unrecognize d section and content) In the event this informatio n is protected by the Federal Confidentiality of Alcohol and Drug Abuse Patient Records regulations: The Federal rules restrict any use of the information to criminally investigate or prosecute any alcohol or drug abuse patient.[facility] the event this information is protected by the Federal Confidentiality of Alcohol and Drug Abuse Patient Records regulations: The Federal rules restrict any use of the information to criminally investigate or prosecute any alcohol or drug abuse patient.[facility] the event this information is protected by the Federal Confidentiality of Alcohol and Drug Abuse Patient Records regulations: The Federal rules restrict any use of the information to criminally investigate or prosecute any alcohol or drug abuse patient.[facility] the event this information is protected by the Federal Confidentiality of Alcohol and Drug Abuse Patient Records regulations: The Federal rules restrict any use of the information to criminally investigate or prosecute any alcohol or drug abuse patient.[facility] Reason for Visit (unrecogniz ed section and content) Reason Comments Consult colonoscopy Reason Comments Establish Care Reason Onset Date Comments Results 09/12/2024 Care Teams (unrecognized sec tion and content) Team Status: Active Member Role Status Dates Dr. Andrey Pérez MD Primary Care Provider Acti ve Team Status: Inactive Member Role Status Dates Dr. Kalyani Dinh DC Attending Provider Active S tart: August 22, 2024 End: August 22, 2024 Team Status: Active Member Role Status Dates Dr. Andrey Pérez MD Primary Care Provider Acti ve Start: August 23, 2024 Dr. Kalyani Dinh DC Attending Provider Active S tart: August 23, 2024 Team Status: Inactive Member Role Status Dates Dr. Kalyani Dinh DC Attending Provider Active S tart: August 30, 2024 End: August 30, 2024 Team Status: Inactive Member Role Status Dates Dr. Kalyani Dinh DC Attending Provider Active S tart: September 13, 2024 End: September 13, 2024 Team Status: Inactive Member Role Status Dates Dr. Kalyani Dinh DC Attending Provider Active S tart: September 28, 2024 End: September 28, 2024 Dr. Andrey Pérez MD Primary Care Provider Acti ve Start: September 28, 2024 End: September 28, 2024 Dr. Andrey Pérez MD Referring Provider Active Start: September 28, 2024 End: September 28, 2024 Trim Attacher Relationship Specialty Start Date End Date Lily Segura DO [address] [address] PCP - General Family Medicine 06/11/22 Trim Attacher Relationship Specialty Start Date End Date Lily Segura DO [address] [id number] PCP - General Family Medicine 06/11/22 Trim Attacher Relationship Specialty Start Date End Date Codie Pérez MD [address] [place], [place] [id number] PCP - General Family Medicine 09/09/24 Mary Quinonez APRN.CNP [address] [place] [address] Family Medicine 09/09/24 Trim Attacher Relationship Specialty Start Date End Date Codie Pérez MD [address] [facility] [place] [address] PCP - General Family Medicine 09/09/24 PodlogMary chang APRN.MANAGER UTILITY [address] [place] [address] Family Medicine 09/09/24 PodlogarMary APRN.MANAGER UTILITY [address] [place] [address] [employer] Shipping Agent Family Medicine 09/12/24 Team Status: Inactive Member Role Status Dates Dr. Andrey Pérez MD Primary Care Provider Acti ve Start: October 13, 2024 End: October 13, 2024 Dr. Andrey Pérez MD Referring Provider Active Start: October 13, 2024 End: October 13, 2024 Dr. Kalyani Dinh DC Attending Provider Active S tart: October 13, 2024 End: October 13, 2024 FOR RECORDS PERTAINING TO PATIENTS WHO ARE OR HAVE BEEN ENROLLED IN A CHEMICAL DEPENDENCY/SUBSTANCEABUSE PROGRAM, SOME INFORMATION MAY BE OMITTED. This clinical summary was aggregated from multiple sources. Caution should be exercised in using it in the provision of clinical care. This summary normalizes information from multiple sources, and as a consequence, information in this document may materially change the coding, format and clinical context of patient data. In addition, data may be omitted in some cases. CLINICAL DECISIONS SHOULD BE BASED ON THE PRIMARY CLINICAL RECORDS. [facility] ffk environment [facility]. provides no warranty or guarantee of the accuracy or completeness of information in this document.
== END | disposition home or self-care (01) ==
PROVIDERS: PCP Family Medicine; Referring Provider Chiropractor; Visit Provider Chiropractor
DX: M99.03 Segmental and somatic dysfunction of lumbar region (principal); M99.05 Segmental and somatic dysfunction of pelvic region; M54.50 Low back pain, unspecified
CPT/HCPCS: 72148